=== PATIENT | female | born 1935 | race Caucasian/White ===

== ENCOUNTER 2020-12-30 09:59 | Outpatient (REF) | payer MEDICARE, SELFPAY ==
--- NOTE | ~2020-12-30 | MM_ITS ---
EXAMINATION: MM SCREENING DIGITAL BREAST TOMOSYNTHESIS, BILATERAL CLINICAL INFORMATION: Screening. Asymptomatic. COMPARISON: Mammography: 10/07/2019, 08/19/2018, 07/30/2017 TECHNIQUE: Digital breast tomosynthesis is performed in both the craniocaudal and mediolateral oblique views along with computer-aided detection (CAD). Synthesized 2D images are generated from the tomosynthesis. FINDINGS: There are scattered areas of fibroglandular density (ACR BI-RADS breast composition Category b). Parenchymal pattern is similar to prior studies. No developing density. Again, there is stable nodularity likely intraparenchymal nodes at mid outer left breast and also at mid outer right breast. There is a nodule with benign coarse calcification mid upper outer right breast consistent with degenerating fibroadenoma. There are no abnormal calcifications. The axilla and skin contours are unremarkable. No significant changes. MM/MM tomosynthesis screening BI IMPRESSION: No mammographic evidence of malignancy. ASSESSMENT: BI-RADS 2: Benign RECOMMENDATION: Routine annual mammography screening. This patient's information was entered into a reminder system with a target due date for their next mammogram.
== END 2020-12-30 10:00 | disposition home or self-care (01) ==
LOC: HO.MAMMO 09:59
PROVIDERS: PCP Internal Medicine; Visit Provider Internal Medicine
DX: Z12.31 Encounter for screening mammogram for malignant neoplasm of breast (principal)
CPT/HCPCS: 77063; 77067

== ENCOUNTER 2021-02-03 11:07 | Outpatient (REF) | payer MEDICARE, SELFPAY ==
[2021-02-03 12:06] LABS: Glucose Urine UA NEG (NEG); Leukocyte Esterase Urine 1+ (NEG); Nitrite Urine NEG (NEG); PH 6.5 (5.0-8.0); UACC Culture Trigger YES; Urine Blood NEG (NEG); Urine Ketones NEG (NEG); Urine Protein NEG (NEG-TRACE)
[2021-02-03 12:07] LABS: Appearance Urine HAZY; Color Urine YELLOW
[2021-02-03 12:34] LABS: Bacteria Urine 4+ /LPF; RBC Urine 0 /HPF (0); Squamous Epithelial Cell Urine 1+ /LPF; WBC Urine 30-49 /HPF (0-4)
== END 2021-02-03 11:08 | disposition home or self-care (01) ==
LOC: HO.LAB 11:07
PROVIDERS: PCP Internal Medicine; Visit Provider Internal Medicine
DX: R30.0 Dysuria (principal)
CPT/HCPCS: 81001; 81003; 87086; 87088; 87186

== ENCOUNTER 2021-06-05 10:37 | Outpatient (REF) | payer MEDICARE, SELFPAY ==
--- NOTE | 2021-06-05 14:17 | MHC.AU.AEV ---
Adult Audiological Evaluation Date of Visit: 06/05/21 Reason for Appointment: Patient's PCP recommended an audiological evaluation. Patient does not perceive that she has hearing difficulty in most situations. Many of her interactions are one-on-one or in small groups, and she feels she can understand people well. 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 When friends have called her on the phone, they have told her that she needs to lower her television in the background so they can hear her. Ear History: Ear Deformity: None Reported Recent Ear Drainage: None Reported Recent Ear Pain: None Reported Recent Ear Infections: None Reported Ear Infections in Childhood: None Reported History of Ear Wax Buildup: None Reported Previous Ear Surgery: None Reported Bothersome Tinnitus/Ringing/Noises in Ears: None Reported Ear used on the phone: Right Ear Blocked/Full Sensation in Ear(s): None Reported History of occupational noise exposure?: No History: No Medical History: Medical History: Hypertension. 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 They were discovered afterwards by imaging ordered by neurology. Otoscopy: Right Ear: Unremarkable Left Ear: Unremarkable Tympanometry: Tympanometry performed due to: To assess integrity of the middle ear system Right Ear: Reduced Middle Ear Compliance (Type As) Left Ear: Reduced Middle Ear Compliance (Type As) Hearing Evaluation: Transducer(s) Used: Circumaural Headphones Method: Conventional Audiometry Stimuli Used: Pure Tones Right Ear: Description of Hearing: Mild to severe/profound sensorineural hearing loss Left Ear: Description of Hearing: Mild to severe/profound sensorineural hearing loss Speech Recognition Threshold (SRT): Method Used: Recorded Lists Stimuli Used: Spondee Words Right Ear: 40 dBHL Left Ear: 45 dBHL Word Discrimination: Method: Recorded Lists Word Lists Used:: W-22 Right Ear: 52% at 75 dBHL Left Ear: 56% at 75 dBHL Most Comfortable Level (MCL): Right Ear: 75 dBHL Left Ear: 75 dBHL Interpretation of Results: Patient presents with mild sloping to severe/profound sensorineural hearing loss bilaterally, as well as poor word discrimination bilaterally. Audiologically, patient is a candidate for hearing aids. Patients with this degree of hearing loss often experience problems with clarity of sound. During conversation, many often find themselves saying things such as I heard you, but I didn't make out what you said. It is more difficult to understand speech in the presence of background noise or if the person speaking is not directly in front of the listener. Although audiologically she is a candidate for hearing aids, the patient does not seem ready for hearing aids at this time. She does not perceive that she is having hearing difficulty and feels she is able to follow along well in most conversations. She finds that most of her interactions are one-on-one or in smaller groups, and in quiet settings. She lives alone, and reports that she sets the television volume to however she wants it. In order for hearing aids to work optimally, one must be ready to wear them during all waking hours. Patient does not feel her hearing loss is impacting her daily life enough to make that commitment yet. Some signs that you may be ready for hearing aids include: -You find yourself asking huh? or what? numerous times a day. -People in your life are frequently bringing up concerns about your hearing. -You are avoiding certain activities, gatherings, or events because you don't think you'll be able to hear. -You are missing important safety cues, such as hearing people call your name, traffic sounds, knocks on the door/the doorbell, or alarms. -You find yourself, or others, getting frustrated during conversations. Recommendations: Audiological re-evaluation in one year. Diagnosis: Primary Diagnosis: H90.3 Bilateral Sensorineural Hearing Loss Signature: Provider: Poly García, JOCELINE-A
== END 2021-06-05 10:38 | disposition home or self-care (01) ==
LOC: HO.SH 10:37
PROVIDERS: Visit Provider Internal Medicine
DX: H90.3 Sensorineural hearing loss, bilateral (principal); I10 Essential (primary) hypertension; Z86.73 Personal history of transient ischemic attack (TIA), and cerebral infarction without residual deficits
CPT/HCPCS: 92557; 92567

== ENCOUNTER 2021-08-10 06:12 | Emergency (ER) | payer MEDICARE, SELFPAY ==
--- NOTE | ~2021-08-10 | MR_ITS ---
EXAMINATION: MR BRAIN WITHOUT CONTRAST CLINICAL INFORMATION: Vertigo. History of stroke. COMPARISON: CT head from 08/10/2021. Brain MRI from 11/13/2016. TECHNIQUE: MRI of the brain was obtained using routine sequences without contrast. FINDINGS: No focal restricted diffusion is demonstrated to suggest acute or subacute cerebral ischemia. No evidence of acute or chronic hemorrhagic products on heme-sensitive imaging. Regions of chronic encephalomalacia within the left occipitotemporal lobes and lateral right frontal lobe. Confluent periventricular, deep white matter, and brainstem T2 FLAIR hyperintensity consistent with underlying microangiopathy. Proportional prominence of the ventricles and sulcal spaces without evidence of obstructive hydrocephalus. No abnormal mass effect. No midline shift. Normal appearance of the pituitary gland. Normal positioning of the cerebellar tonsils. Normal arterial and venous vascular flow voids are present. Normal, homogeneous marrow signal. 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 There appears to be at least mild spinal canal stenosis at C4-C5. Mild mucosal thickening of the paranasal sinuses. No signal abnormalities within the mastoids. Bilateral lens extractions. MR/MR head/brain wo con IMPRESSION: 1. No acute intracranial abnormalities. 2. Chronic regions of encephalomalacia within the left occipitotemporal lobes and right frontal lobe. Extensive underlying microangiopathy. Moderate generalized cerebral volume loss.
--- NOTE | ~2021-08-10 | CT_ITS ---
EXAMINATION: CT HEAD WITHOUT CONTRAST CLINICAL INFORMATION: Dizziness COMPARISON: 09/29/2017 TECHNIQUE: Contiguous axial imaging was performed from the skull base to vertex without intravenous administration of contrast. This CT examination was performed using dose optimization techniques as appropriate, variously including the following: *Automated exposure control *Adjustment of mA and/or kV according to patient size (this includes techniques or standardized protocols for targeted exams where dose is matched to indication/reason for exam; i.e. extremities or head) *Use of iterative reconstruction technique DLP: 671 mGy-cm FINDINGS: No evidence of acute intracranial hemorrhage or extra-axial fluid collection. No acute territorial infarction. Old infarcts with encephalomalacia involve the left parietal lobe and right frontal lobe. Extensive periventricular white matter hypodensities are also seen indicating chronic small vessel ischemic disease. No evidence of mass lesion, mass effect or midline shift. The ventricles are symmetric in configuration and basal cisterns are patent. The ventricles are globally increased in size in proportion to sulcal depth in keeping with global volume loss, unchanged. The calvarium is intact. Limited views of the paranasal sinuses are unremarkable. Mastoid air cells are well aerated and middle ear cavities are clear. Bilateral lens extractions. CT/CT head/brain wo con IMPRESSION: 1. No evidence of acute intracranial abnormality. 2. Encephalomalacia involving the right frontal and left parietal lobes consistent with old infarct, unchanged.
--- NOTE | ~2021-08-10 | XR_ITS ---
EXAMINATION: XR CHEST CLINICAL INFORMATION: Dizziness. COMPARISON: None TECHNIQUE: Frontal view of the chest was obtained. FINDINGS: The lungs are hypoexpanded and clear of acute process. The heart size and pulmonary vascularity is normal. There is mild dextroscoliosis of mid dorsal spine. There is mild spondylosis of dorsal spine. XR/XR chest 1V IMPRESSION: Hypoexpanded lungs. No acute process seen.
[2021-08-10 06:19] VITALS: BP 206/108; BP 220/90; PULSE 57; PULSE 60; RESP 14; O2SAT 100; O2SAT 98; BMI 29.2
--- NOTE | 2021-08-10 07:07 | ECG_ITS ---
Test Reason : DIZZINESS Blood Pressure : / mmHG Vent. Rate : 063 BPM Atrial Rate : 063 BPM P-R Int : 194 ms QRS Dur : 096 ms QT Int : 424 ms P-R-T Axes : 005 004 -01 degrees QTc Int : 433 ms Sinus rhythm with Premature supraventricular complexes Nonspecific ST and T wave abnormality Abnormal ECG When compared with ECG of 09-JUN-2018 03:11, Premature supraventricular complexes are now Present Inverted T waves have replaced nonspecific T wave abnormality in Inferior leads Nonspecific T wave abnormality, worse in Lateral leads Referred By: Katya Felix Electronically Signed By:ROSALBA SIMMONS
--- NOTE | 2021-08-10 07:08 | ED_ITS ---
HPI - Dizziness General Chief Complaint: Dizziness Stated Complaint: DIZZINESS HX STROKE Time Seen by Provider: 08/10/21 06:25 Source: patient and EMS Mode of arrival: EMS Limitations: no limitations History of Present Illness HPI Narrative: 86-year-old female came in for evaluation of dizziness. 86-year-old female came in for evaluation of vertigo/dizziness (room is spinning) patient had a history of vertigo, started today (patient had a history of vertigo for 2 years), patient otherwise decline headache, no weakness, no numbness, dizziness is intermittent, symptoms usually triggered when she changed her position, but sometimes get it when she is resting in bed. Patient tried 3 of meclizine at home with no relief, however patient's symptoms improved in the ED. New patient declined any nausea or vomiting, no chest pain, no shortness of breath. Related Data Home Medications Medication Instructions Recorded Confirmed aspirin 81 mg tablet,delayed 81 mg PO DAILY 02/14/21 02/14/21 release (Adult Aspirin Regimen) Previous Rx's Medication Instructions Recorded ciprofloxacin HCl 250 mg tablet 250 mg PO BID 5 Days #10 tab 02/12/21 (Cipro) ciprofloxacin HCl 250 mg tablet 250 mg PO BID 3 Days #6 tab 03/22/21 meclizine 25 mg tablet 25 mg PO TID PRN #90 tab 03/22/21 atenolol 25 mg tablet 25 mg PO DAILY 90 Days #90 tab 05/04/21 omeprazole 20 mg capsule,delayed 20 mg PO DAILY 90 Days #90 cap 05/04/21 release Allergies Allergy/AdvReac Type Severity Reaction Status Date / Time codeine [CODEINE] Allergy Intermediate sleepiness Verified 02/14/21 09:40 penicillin V Allergy Intermediate Rash Verified 02/14/21 09:40 Sulfa (Sulfonamide Allergy Intermediate Rash Verified 02/14/21 09:40 Antibiotics) colchicine AdvReac Intermediate diarrhea Verified 02/14/21 09:40 Clindamycin HCl Allergy Intermediate dizziness Uncoded 02/14/21 09:40 Review of Systems Review of Systems: All other systems are reviewed and are negative Constitutional: Reports as per HPI and Reports no additional constitutional complaints Eyes: Reports as per HPI and Reports no additional eye complaints Reports system reviewed and no additional complaints, except as documented Cardiovascular: Reports as per HPI and Reports no additional cardiovascular complaints Respiratory: Reports as per HPI and Reports no additional respiratory complaints Gastrointestinal: Reports as per HPI and Reports no additional gastrointestinal complaints Genitourinary: Reports no additional female genitourinary complaints Musculoskeletal: Reports no additional musculoskeletal complaints Skin/Breast: Reports system reviewed and no additional complaints, except as docu Psychiatric: Reports no additional psychiatric complaints Endocrine: Reports no additional endocrine complaints Hematologic/Lymphatic: Reports no additional hematologic/lymphatic complaints Allergic/Immunologic: Reports no additional allergic/immunologic complaints Reports system reviewed and no additional complaints, except as documented and Reports Abnormal speech present [facility] Past Medical History Medical History Encounter for annual wellness exam in Medicare patient Essential hypertension GERD (gastroesophageal reflux disease) Gout Presbyacusis Surgical History History of appendectomy History of tonsillectomy Family History Family History Father No problems noted. Mother No problems noted. Social History Social History Alcohol intake: never Patient Tobacco Use Status: Never used Tobacco e-Cigarette/Vaping Use: Never Used Second Hand Smoke Exposure: No Use of substances other than those prescribed or required for medical reasons: No Advance Directives: Yes Advance Directives Information Provided: No Advance Directives on File: No Physical Exam Vital Signs: Vital Signs: Last Vital Signs Temp 98.8 F 08/10/21 10:55 Pulse 58 08/10/21 10:55 Resp 18 08/10/21 10:55 BP 178/64 H 08/10/21 10:55 Pulse Ox 98 08/10/21 10:55 BMI result Body Mass Index 29.2 Vital signs have been reviewed as appeared to be correct. Blood pressure eleva esteban. Heart rate normal. Respiration rate normal. Temperature normal. Oxygen saturation normal. Appearance: Alert. Oriented X3. No acute distress. Head: Normal external exam. Normocephalic. Atraumatic. No Daley signs noted. No raccoon eyes noted Eyes: PERRLA. EOMI. Conjunctiva and sclera normal. Eyelids normal. ENT: TM's Normal. Pharynx normal. Uvula midline. Moist mucous membranes. No trismus noted. No drooling noted. No muffled voice noted. Neck: Normal inspection. Neck supple. FROM. No adenopathy. Thyroid Normal. No meningeal signs. No neck mass noted. CVS: Normal heart rate and rhythm. Heart sound normal. No murmurs noted. Pulses normal throughout. Respiratory: No respiratory distress. Painless inspiration. Breath sounds normal. No wheezes/rales/rhonchi noted. Chest nontender. No accessory muscle usage noted or decreased air movement noted. Abdomen: Soft and nontender. Bowel sounds normal in all 4 quadrants. No distention noted. No organomegaly noted. No visible injury noted. Back: No CVA tenderness. Full range of motion noted. Skin: Skin warm and dry. Normal skin color. Normal skin turgor. No rashes/lesions/lacerations noted. Extremities: No lower extremity edema. Extremities exhibit normal range of motion. Extremities nontender. Neuro: Oriented X 3. Cranial nerve exam: II-XII are grossly intact No motor deficit. No sensory deficit. Reflexes normal. NIH Stroke Scale Level of Consciousness: Alert Level of Consciousness Questions: Answers both questions correctly Level of Consciousness Commands: Performs both tasks correctly Best Gaze: Normal Visual: No visual loss Facial Palsy: Normal Motor Arm (Right): No drift Motor Arm (Left): No drift Motor Leg (Right): No drift Motor Leg (Left): No drift Limb Ataxia: Absent Sensory: Normal Best Language: No aphasia Dysarthia: Normal Extinction and Inattention: No abnormality Score: 0 Course Course Course Narrative: Assessment and plan. 86-year-old female with chronic history of vertigo and also history of stroke came in for vertigo. Concern of posterior fossa stroke patient had a negative CT/negative MRI of the brain for acute strokes, patient's neuro exam is normal, NIH score is 0. Patient was instructed to be slow and careful when he changed position and if she feel dizzy should not get up and walk. [facility] - Dizziness Medical Records Attestation: I reviewed the patient's medical records. Lab Data Attestation: I reviewed the patient's lab results. Result diagrams: 08/10/21 07:56 08/10/21 07:56 Labs: Lab Results 08/10/21 08/10/21 08/10/21 Range/Units 07:56 07:56 07:56 WBC 10.8 (4.8-10.8) X10*3/uL RBC 4.14 L (4.20-5.50) X10*6/uL Hgb 13.1 (12.0-16.0) g/dl Hct 39.2 (37.0-47.0) % MCV 94.7 (80.0-98.0) fL MCH 31.6 (27.0-33.0) pg MCHC 33.4 (31.0-35.0) g/dl RDW 13.2 (11.0-16.0) % Plt Count 161 (160-400) X10*3/uL MPV 10.3 (9.4-12.3) fL Immature Gran % (Auto) 0.2 (0.0-0.4) % Neut % (Auto) 25.4 L (45-73) % Lymph % (Auto) 63.4 H (20-40) % [place] % (Auto) 7.2 (2-11) % Eos % (Auto) 3.4 (0-4) % Baso % (Auto) 0.4 (0-2) % Lymph # (Auto) 6.9 H (1.2-4.9) X10*3/uL [place] # (Auto) 0.8 (0.1-1.2) X10*3/uL Eos # (Auto) 0.4 (0.0-0.4) X10*3/uL Baso # (Auto) 0.0 (0.0-0.2) X10*3/uL Abs Immat Gran (auto) 0.02 (0.00-0.03) X10*3/uL Absolute Neuts (auto) 2.8 (2.0-8.3) x10*3/uL Absolute Nucleated RBC 0.000 (0.0-0.012) X10*3/uL Nucleated RBC % (auto) 0.0 (0.0-0.2) /100WBC Smear Tech's Comments VERIFIED Sodium 142 (135-145) mmol/L Potassium 3.9 (3.3-5.1) mmol/L Chloride 108 (96-108) mmol/L Carbon Dioxide 24 (22-29) mmol/L Anion Gap 14 (12-20) BUN 25 H (9-16) mg/dL Creatinine 1.00 (0.5-1.4) mg/dL Estim Creat Clear Calc 40.5 Estimated GFR 53 Random Glucose 101 (60-115) mg/dL Calcium 9.8 (8.4-10.2) mg/dL Total Bilirubin 0.9 (0.0-1.0) mg/dL Direct Bilirubin 0.3 (0.0-0.5) mg/dL AST 18 (5-31) U/L ALT 14 (0-31) U/L Alkaline Phosphatase 73 (39-117) U/L Troponin I High Sens 9.6 (<3.5-17.0) ng/L Total Protein 6.6 (6.5-8.0) g/dL Albumin 3.9 (3.5-5.0) g/dL Lipase 18 (8-78) U/L Urine Color Urine Appearance Urine pH (5.0-8.0) Ur Specific [place] (1.005-1.025) Urine Protein (NEG-TRACE) MG/DL Urine Glucose (UA) (NEG) MG/DL Urine Ketones (NEG) MG/DL Urine Blood (NEG) Urine Nitrite (NEG) Ur Leukocyte Esterase (NEG) 08/10/21 Range/Units 09:04 WBC (4.8-10.8) X10*3/uL RBC (4.20-5.50) X10*6/uL Hgb (12.0-16.0) g/dl Hct (37.0-47.0) % MCV (80.0-98.0) fL MCH (27.0-33.0) pg MCHC (31.0-35.0) g/dl RDW (11.0-16.0) % Plt Count (160-400) X10*3/uL MPV (9.4-12.3) fL Immature Gran % (Auto) (0.0-0.4) % Neut % (Auto) (45-73) % Lymph % (Auto) (20-40) % [place] % (Auto) (2-11) % Eos % (Auto) (0-4) % Baso % (Auto) (0-2) % Lymph # (Auto) (1.2-4.9) X10*3/uL [place] # (Auto) (0.1-1.2) X10*3/uL Eos # (Auto) (0.0-0.4) X10*3/uL Baso # (Auto) (0.0-0.2) X10*3/uL Abs Immat Gran (auto) (0.00-0.03) X10*3/uL Absolute Neuts (auto) (2.0-8.3) x10*3/uL Absolute Nucleated RBC (0.0-0.012) X10*3/uL Nucleated RBC % (auto) (0.0-0.2) /100WBC Smear Tech's Comments Sodium (135-145) mmol/L Potassium (3.3-5.1) mmol/L Chloride (96-108) mmol/L Carbon Dioxide (22-29) mmol/L Anion Gap (12-20) BUN (9-16) mg/dL Creatinine (0.5-1.4) mg/dL Estim Creat Clear Calc Estimated GFR Random Glucose (60-115) mg/dL Calcium (8.4-10.2) mg/dL Total Bilirubin (0.0-1.0) mg/dL Direct Bilirubin (0.0-0.5) mg/dL AST (5-31) U/L ALT (0-31) U/L Alkaline Phosphatase (39-117) U/L Troponin I High Sens (<3.5-17.0) ng/L Total Protein (6.5-8.0) g/dL Albumin (3.5-5.0) g/dL Lipase (8-78) U/L Urine Color STRAW Urine Appearance CLEAR Urine pH 7.5 (5.0-8.0) Ur Specific [place] 1.010 (1.005-1.025) Urine Protein NEG (NEG-TRACE) MG/DL Urine Glucose (UA) NEG (NEG) MG/DL Urine Ketones NEG (NEG) MG/DL Urine Blood NEG (NEG) Urine Nitrite NEG (NEG) Ur Leukocyte Esterase NEG (NEG) Imaging Data CT scan - head: Radiologist's impression: 1. No evidence of acute intracranial abnormality. 2. Encephalomalacia involving the right frontal and left parietal lobes consistent with old infarct, unchanged. MRI - head: Radiologist's impression: 1. No acute intracranial abnormalities. 2. Chronic regions of encephalomalacia within the left occipitotemporal lobes and right frontal lobe. Extensive underlying microangiopathy. Moderate generalized cerebral volume loss. Chest x-ray: Radiologist's impression: Hypoexpanded lungs. No acute process seen. ECG Data Attestation: I personally reviewed and interpreted this ECG as follows: Interpretation: Normal sinus rhythm at 63 beats per minutes, occasional premature supraventricular complex, no ST-T changes. Discharge Plan Discharge Clinical Impression: Essential hypertension, Vertigo Patient Disposition: Home, Self-Care Instructions: Vertigo (ED) Prescriptions: No Action ciprofloxacin HCl [Cipro] 250 mg tablet 250 mg PO BID 5 Days Qty: 10 RF: 0 meclizine 25 mg tablet 25 mg PO TID PRN (Reason: dizziness) Qty: 90 RF: 6 ciprofloxacin HCl 250 mg tablet 250 mg PO BID 3 Days Qty: 6 RF: 0 atenolol 25 mg tablet 25 mg PO DAILY 90 Days Qty: 90 RF: 3 omeprazole 20 mg capsule,delayed release(DR/EC) 20 mg PO DAILY 90 Days Qty: 90 RF: 3 aspirin [Adult Aspirin Regimen] 81 mg tablet,delayed release (DR/EC) 81 mg PO DAILY RF: 0 Referrals: Elodia Heard MD [Primary Care Provider] - 2 days
[2021-08-10 08:06] LABS: Basophils Percent Auto 0.4 % (0-2); Eosinophils Absolute Auto 0.4 X10*3/uL (0.0-0.4); Eosinophils Percent Auto 3.4 % (0-4); Hematocrit 39.2 % (37.0-47.0); Hemoglobin 13.1 g/dl (12.0-16.0); Imm Gran Abs Auto 0.02 X10*3/uL (0.00-0.03); Imm Gran Pct Auto 0.2 % (0.0-0.4); Lymphocytes Percent Auto 63.4 % (20-40); MANUAL DIFF FLAG SCAN; Mean Corpuscular HGB Conc 33.4 g/dl (31.0-35.0); Mean Corpuscular Hemoglobin 31.6 pg (27.0-33.0); Mean Corpuscular Volume 94.7 fL (80.0-98.0); Mean Platelet Volume 10.3 fL (9.4-12.3); Monocytes Absolute Auto 0.8 X10*3/uL (0.1-1.2); Monocytes Percent Auto 7.2 % (2-11); Neutrophils Absolute Auto 2.8 x10*3/uL (2.0-8.3); Neutrophils Percent Auto 25.4 % (45-73); Platelet Count 161 X10*3/uL (160-400); Red Blood Count 4.14 X10*6/uL (4.20-5.50); Red Cell Distribution Width 13.2 % (11.0-16.0); SCAN SMEAR FLAG 1; White Blood Count 10.8 X10*3/uL (4.8-10.8)
[2021-08-10 08:07] LABS: Lymphocytes Absolute Auto 6.9 X10*3/uL (1.2-4.9)
[2021-08-10 08:24] LABS: Alanine Aminotransferase 14 U/L (0-31); Albumin Level 3.9 g/dL (3.5-5.0); Alkaline Phosphatase 73 U/L (39-117); Anion Gap 14 (12-20); Aspartate Amino Transferase 18 U/L (5-31); Bilirubin Direct 0.3 mg/dL (0.0-0.5); Bilirubin Total 0.9 mg/dL (0.0-1.0); Blood Urea Nitrogen 25 mg/dL (9-16); Calcium 9.8 mg/dL (8.4-10.2); Carbon Dioxide 24 mmol/L (22-29); Chloride 108 mmol/L (96-108); Creatinine Clr Calc Pharmacy 40.5; Estimated Glomerular Filt Rate 53; Glucose Random 101 mg/dL (60-115); Lipase 18 U/L (8-78); Potassium 3.9 mmol/L (3.3-5.1); Sodium 142 mmol/L (135-145); Total Protein 6.6 g/dL (6.5-8.0)
[2021-08-10 08:25] LABS: SLIDE REVIEW VERIFIED
[2021-08-10 08:30] LABS: Troponin-I High Sensitivity 9.6 ng/L (<3.5-17.0)
[2021-08-10 09:06] VITALS: BP 197/69; PULSE 60; RESP 20; TEMP 37.1; O2SAT 97
--- NOTE | 2021-08-10 09:11 | PC.NURSE ---
PT LAB WORK PENDING HAS BEEN TO MRI RESULTS PENDING DAUGHTER HAS BEEN UPDATED ON STATUS WILL CALL ONCE WE HAVE MORE RESULTS
[2021-08-10 09:19] LABS: Appearance Urine CLEAR; Color Urine STRAW; Glucose Urine UA NEG (NEG); Leukocyte Esterase Urine NEG (NEG); Nitrite Urine NEG (NEG); PH 7.5 (5.0-8.0); Urine Blood NEG (NEG); Urine Ketones NEG (NEG); Urine Protein NEG (NEG-TRACE)
[2021-08-10 10:55] VITALS: BP 178/64; PULSE 58; RESP 18; TEMP 37.1; O2SAT 98
--- NOTE | 2021-08-10 11:37 | PC.NURSE ---
daughter call will be coming to pu her mom
== END 2021-08-10 12:10 | disposition home or self-care (01) ==
PROVIDERS: Emergency Provider Emergency Medicine; PCP Internal Medicine
DX: R42 Dizziness and giddiness (principal); I10 Essential (primary) hypertension
CPT/HCPCS: 36415; 70450; 70551; 71045; 80048; 80076; 81003; 83690; 84484; 85025; 93005; 99285

== ENCOUNTER → 2021-12-07 10:12 | Outpatient (BNVA) | payer MEDICARE, SELFPAY | PROVIDERS: PCP Internal Medicine; Referring Provider Internal Medicine; Visit Provider Nurse Practitioner | DX: K31.7 Polyp of stomach and duodenum (principal); K21.9 Gastro-esophageal reflux disease without esophagitis; R10.13 Epigastric pain | CPT/HCPCS: 99202 ==

== ENCOUNTER 2022-02-20 10:02 | Outpatient (REF) | payer MEDICARE, SELFPAY ==
[2022-02-20 12:15] LABS: Appearance Urine HAZY; Color Urine YELLOW; Glucose Urine UA NEG (NEG); Leukocyte Esterase Urine 1+ (NEG); Nitrite Urine NEG (NEG); PH 6.5 (5.0-8.0); Specific Gravity - Urine 1.015 (1.005-1.025); UACC Culture Trigger YES; Urine Blood TRACE (NEG); Urine Ketones NEG (NEG); Urine Protein TRACE MG/DL (NEG-TRACE)
[2022-02-20 12:36] LABS: Squamous Epithelial Cell Urine 1+ /LPF
[2022-02-20 12:37] LABS: Bacteria Urine 1+ /LPF
== END 2022-02-20 10:03 | disposition home or self-care (01) ==
LOC: HO.LAB 10:02
PROVIDERS: PCP Internal Medicine; Visit Provider Internal Medicine
DX: R30.0 Dysuria (principal)
CPT/HCPCS: 81001; 81003; 87086; 87088; 87186

== ENCOUNTER 2022-02-21 17:34 | Emergency (ER) | payer MEDICARE, SELFPAY ==
--- NOTE | ~2022-02-21 | XR_ITS ---
EXAMINATION: XR ANKLE, RIGHT CLINICAL INFORMATION: Fall COMPARISON: None TECHNIQUE: AP, lateral, and mortise views of the right ankle. FINDINGS: There is marked bilateral soft tissue swelling. The ankle mortise appears stable. An ankle effusion is not seen. No fracture is detected. Vascular calcifications are present in incidental note is made of a plantar calcaneal spur. XR/XR ankle RT 2V IMPRESSION: No evidence of an acute osseous injury.
[2022-02-21 17:46] VITALS: BP 175/65; PULSE 58; RESP 16; TEMP 36.9; O2SAT 98
[2022-02-21 17:50] VITALS: BP 132/86; PULSE 66; O2SAT 96; BMI 30.7
--- NOTE | 2022-02-21 18:11 | ED_ITS ---
HPI - Fall General Chief Complaint: Fall Stated Complaint: fall/ r ankle pain/ dizziness Time Seen by Provider: 02/21/22 18:09 Source: patient Mode of arrival: EMS Limitations: no limitations History of Present Illness HPI Narrative: Patient history of vertigo uses walker or cane today she was walking in the kitchen without any cane or walker had a mechanical fall she does not know what happened exactly no dizziness no chest pain no loss of consciousness complaining of pain in the right ankle Related Data Home Medications Medication Instructions Recorded Confirmed aspirin 81 mg tablet,delayed 81 mg PO DAILY 02/14/21 02/15/22 release (Adult Aspirin Regimen) ascorbic acid (vitamin C) 500 mg 500 mg PO DAILY 12/07/21 02/15/22 capsule cholecalciferol (vitamin D3) 50 50 mcg PO DAILY 12/07/21 02/15/22 mcg (2,000 unit) capsule Previous Rx's Medication Instructions Recorded meclizine 25 mg tablet 25 mg PO TID PRN dizziness #90 tabs 03/22/21 atenolol 25 mg tablet 25 mg PO DAILY 90 days #90 tabs 05/04/21 famotidine 40 mg tablet (Pepcid) 40 mg PO BEDTIME #30 tabs 12/07/21 nitrofurantoin macrocrystal 100 mg 100 mg PO BID 7 days #14 caps 02/15/22 capsule Allergies Allergy/AdvReac Type Severity Reaction Status Date / Time clindamycin Allergy Intermediate Dizziness Verified 02/15/22 15:00 codeine [CODEINE] Allergy Intermediate sleepiness Verified 02/15/22 11:02 penicillin V Allergy Intermediate Rash Verified 02/15/22 11:02 Sulfa (Sulfonamide Allergy Intermediate Rash Verified 02/15/22 11:02 Antibiotics) colchicine AdvReac Intermediate diarrhea Verified 02/15/22 11:02 Review of Systems Review of Systems: Yes all other systems are reviewed and are negative [facility] Past Medical History Medical History HTN (hypertension) Low back pain with sciatica Osteoarthritis TIA (transient ischemic attack) Surgical History History of appendectomy History of esophagogastroduodenoscopy (EGD) History of tonsillectomy Hx of cataract extraction S/P implantation of urinary electronic stimulator device Family History Family History Father No problems noted. Mother No problems noted. Social History Social History Alcohol intake: never Patient Tobacco Use Status: Never used Tobacco e-Cigarette/Vaping Use: Never Used Second Hand Smoke Exposure: No Advance Directives: No Advance Directives Information Provided: No Physical Exam Vital Signs: Vital Signs: Last Vital Signs Temp 98.5 F 02/21/22 20:08 Pulse 72 02/21/22 20:08 Resp 16 02/21/22 20:08 BP 179/63 H 02/21/22 20:08 Pulse Ox 95 02/21/22 20:08 O2 Del Method 02/21/22 20:08 BMI result Body Mass Index 30.7 Appearance: Alert. Oriented X3. No acute distress. Eyes: PERRLA, No Nystagmus ENT: Pharynx normal. Oral Mucosa moist Neck: Normal inspection. Neck supple. CVS: Normal heart rate and rhythm. Pulses normal. Respiratory: No respiratory distress. Equal air entry bilateral, no wheezing/rales/rhonchi Abdomen: Soft and nontender. Bowel sounds are present, no mass palpable, no CVA tenderness Skin: Skin warm and dry. Normal skin color. Normal skin turgor. Extremities: 1+ lower extremity edema. No calf tenderness R ankle tenderness without deformity Neuro: Oriented X 3. No motor deficit. No sensory deficit.No cerebellar signs , cranial nerves II-XII intact MDM - Fall Lab Data Result diagrams: 02/21/22 18:55 02/21/22 18:55 Labs: Lab Results 02/21/22 02/21/22 02/21/22 Range/Units 18:55 18:55 18:55 WBC 14.0 H (4.8-10.8) X10*3/uL RBC 4.21 (4.20-5.50) X10*6/uL Hgb 13.3 (12.0-16.0) g/dl Hct 39.3 (37.0-47.0) % MCV 93.3 (80.0-98.0) fL MCH 31.6 (27.0-33.0) pg MCHC 33.8 (31.0-35.0) g/dl RDW 13.3 (11.0-16.0) % Plt Count 171 (160-400) X10*3/uL MPV 10.2 (9.4-12.3) fL Immature Gran % (Auto) 0.2 (0.0-0.4) % Neut % (Auto) 43.6 L (45-73) % Lymph % (Auto) 47.9 H (20-40) % [place] % (Auto) 6.9 (2-11) % Eos % (Auto) 1.1 (0-4) % Baso % (Auto) 0.3 (0-2) % Lymph # (Auto) 6.7 H (1.2-4.9) X10*3/uL [place] # (Auto) 1.0 (0.1-1.2) X10*3/uL Eos # (Auto) 0.2 (0.0-0.4) X10*3/uL Baso # (Auto) 0.0 (0.0-0.2) X10*3/uL Abs Immat Gran (auto) 0.03 (0.00-0.03) X10*3/uL Absolute Neuts (auto) 6.1 (2.0-8.3) x10*3/uL Absolute Nucleated RBC 0.000 (0.0-0.012) X10*3/uL Nucleated RBC % (auto) 0.0 (0.0-0.2) /100WBC Smear Tech's Comments VERIFIED Sodium 141 (135-145) mmol/L Potassium 4.9 D (3.3-5.1) mmol/L Chloride 106 (96-108) mmol/L Carbon Dioxide 27 (22-29) mmol/L Anion Gap 13 (12-20) BUN 27 H (9-16) mg/dL Creatinine 1.40 (0.5-1.4) mg/dL Estim Creat Clear Calc 28.6 Estimated GFR 36 Random Glucose 117 H (60-115) mg/dL Calcium 9.6 (8.4-10.2) mg/dL Total Bilirubin 0.9 (0.0-1.0) mg/dL AST 22 (5-31) U/L ALT 15 (0-31) U/L Alkaline Phosphatase 77 (39-117) U/L Troponin I High Sens 9.9 (<3.5-17.0) ng/L Total Protein 6.8 (6.5-8.0) g/dL Albumin 4.1 (3.5-5.0) g/dL Urine Color Urine Appearance Urine pH (5.0-8.0) Ur Specific [place] (1.005-1.025) Urine Protein (NEG-TRACE) MG/DL Urine Glucose (UA) (NEG) MG/DL Urine Ketones (NEG) MG/DL Urine Blood (NEG) Urine Nitrite (NEG) Ur Leukocyte Esterase (NEG) Urine RBC (0) /HPF Urine WBC (0-4) /HPF Urine WBC Clumps Ur Squamous Epith Cells /LPF Urine Bacteria /LPF 02/21/22 Range/Units 20:42 WBC (4.8-10.8) X10*3/uL RBC (4.20-5.50) X10*6/uL Hgb (12.0-16.0) g/dl Hct (37.0-47.0) % MCV (80.0-98.0) fL MCH (27.0-33.0) pg MCHC (31.0-35.0) g/dl RDW (11.0-16.0) % Plt Count (160-400) X10*3/uL MPV (9.4-12.3) fL Immature Gran % (Auto) (0.0-0.4) % Neut % (Auto) (45-73) % Lymph % (Auto) (20-40) % [place] % (Auto) (2-11) % Eos % (Auto) (0-4) % Baso % (Auto) (0-2) % Lymph # (Auto) (1.2-4.9) X10*3/uL [place] # (Auto) (0.1-1.2) X10*3/uL Eos # (Auto) (0.0-0.4) X10*3/uL Baso # (Auto) (0.0-0.2) X10*3/uL Abs Immat Gran (auto) (0.00-0.03) X10*3/uL Absolute Neuts (auto) (2.0-8.3) x10*3/uL Absolute Nucleated RBC (0.0-0.012) X10*3/uL Nucleated RBC % (auto) (0.0-0.2) /100WBC Smear Tech's Comments Sodium (135-145) mmol/L Potassium (3.3-5.1) mmol/L Chloride (96-108) mmol/L Carbon Dioxide (22-29) mmol/L Anion Gap (12-20) BUN (9-16) mg/dL Creatinine (0.5-1.4) mg/dL Estim Creat Clear Calc Estimated GFR Random Glucose (60-115) mg/dL Calcium (8.4-10.2) mg/dL Total Bilirubin (0.0-1.0) mg/dL AST (5-31) U/L ALT (0-31) U/L Alkaline Phosphatase (39-117) U/L Troponin I High Sens (<3.5-17.0) ng/L Total Protein (6.5-8.0) g/dL Albumin (3.5-5.0) g/dL Urine Color YELLOW Urine Appearance HAZY Urine pH 6.5 (5.0-8.0) Ur Specific [place] 1.020 (1.005-1.025) Urine Protein 1+ H (NEG-TRACE) MG/DL Urine Glucose (UA) NEG (NEG) MG/DL Urine Ketones NEG (NEG) MG/DL Urine Blood NEG (NEG) Urine Nitrite NEG (NEG) Ur Leukocyte Esterase 1+ H (NEG) Urine RBC 0-2 (0) /HPF Urine WBC 15-29 H (0-4) /HPF Urine WBC Clumps NOTED Ur Squamous Epith Cells 3+ /LPF Urine Bacteria 1+ /LPF Discharge Plan Discharge Clinical Impression: Fall, UTI (urinary tract infection) Patient Disposition: Home, Self-Care Prescriptions: No Action meclizine 25 mg tablet 25 mg PO TID PRN (Reason: dizziness) Qty: 90 6RF atenolol 25 mg tablet 25 mg PO DAILY 90 Days Qty: 90 3RF aspirin [Adult Aspirin Regimen] 81 mg tablet,delayed release (DR/EC) 81 mg PO DAILY nitrofurantoin macrocrystal 100 mg capsule 100 mg PO BID 7 Days Qty: 14 0RF Rx Instructions: must administer with a meal/food ascorbic acid (vitamin C) 500 mg capsule 500 mg PO DAILY cholecalciferol (vitamin D3) 50 mcg (2,000 unit) capsule 50 mcg PO DAILY famotidine [Pepcid] 40 mg tablet 40 mg PO BEDTIME Qty: 30 6RF
--- NOTE | 2022-02-21 18:16 | ECG_ITS ---
Test Reason : SYNCOPE Blood Pressure : / mmHG Vent. Rate : 073 BPM Atrial Rate : 073 BPM P-R Int : 240 ms QRS Dur : 100 ms QT Int : 382 ms P-R-T Axes : 038 -03 181 degrees QTc Int : 420 ms Sinus rhythm with 1st degree A-V block Left ventricular hypertrophy with repolarization abnormality ( R in aVL , [place] product ) Cannot rule out Septal infarct , age undetermined Abnormal ECG When compared with ECG of 10-AUG-2021 07:57, Premature supraventricular complexes are no longer Present [place] interval has increased T wave inversion now evident in Anterolateral leads Referred By: Lorenzo Osorio Electronically Signed By:Karthikeyan Hood
[2022-02-21 19:05] LABS: Basophils Percent Auto 0.3 % (0-2); Eosinophils Absolute Auto 0.2 X10*3/uL (0.0-0.4); Eosinophils Percent Auto 1.1 % (0-4); Hematocrit 39.3 % (37.0-47.0); Hemoglobin 13.3 g/dl (12.0-16.0); Imm Gran Abs Auto 0.03 X10*3/uL (0.00-0.03); Imm Gran Pct Auto 0.2 % (0.0-0.4); Lymphocytes Percent Auto 47.9 % (20-40); MANUAL DIFF FLAG SCAN; Mean Corpuscular HGB Conc 33.8 g/dl (31.0-35.0); Mean Corpuscular Hemoglobin 31.6 pg (27.0-33.0); Mean Corpuscular Volume 93.3 fL (80.0-98.0); Mean Platelet Volume 10.2 fL (9.4-12.3); Monocytes Percent Auto 6.9 % (2-11); Neutrophils Absolute Auto 6.1 x10*3/uL (2.0-8.3); Neutrophils Percent Auto 43.6 % (45-73); Platelet Count 171 X10*3/uL (160-400); Red Blood Count 4.21 X10*6/uL (4.20-5.50); Red Cell Distribution Width 13.3 % (11.0-16.0); SCAN SMEAR FLAG 1
[2022-02-21 19:06] LABS: Lymphocytes Absolute Auto 6.7 X10*3/uL (1.2-4.9)
[2022-02-21 19:23] LABS: Alanine Aminotransferase 15 U/L (0-31); Albumin Level 4.1 g/dL (3.5-5.0); Alkaline Phosphatase 77 U/L (39-117); Anion Gap 13 (12-20); Aspartate Amino Transferase 22 U/L (5-31); Bilirubin Total 0.9 mg/dL (0.0-1.0); Blood Urea Nitrogen 27 mg/dL (9-16); Calcium 9.6 mg/dL (8.4-10.2); Carbon Dioxide 27 mmol/L (22-29); Chloride 106 mmol/L (96-108); Creatinine Clr Calc Pharmacy 28.6; Estimated Glomerular Filt Rate 36; Glucose Random 117 mg/dL (60-115); Potassium 4.9 mmol/L (3.3-5.1); Sodium 141 mmol/L (135-145); Total Protein 6.8 g/dL (6.5-8.0)
[2022-02-21 19:24] LABS: SLIDE REVIEW VERIFIED
[2022-02-21 19:29] LABS: Troponin-I High Sensitivity 9.9 ng/L (<3.5-17.0)
--- NOTE | 2022-02-21 19:36 | PC.NURSE ---
PATIENT WAS INC OF URINE ,CARE GIVEN AND BEDDING CHANGE ,PERWICK IN PLACE .
[2022-02-21 20:08] VITALS: BP 179/63; PULSE 72; RESP 16; TEMP 36.9; O2SAT 95
[2022-02-21 20:50] LABS: Appearance Urine HAZY; Color Urine YELLOW; Glucose Urine UA NEG (NEG); Leukocyte Esterase Urine 1+ (NEG); Nitrite Urine NEG (NEG); PH 6.5 (5.0-8.0); UACC Culture Trigger YES; Urine Blood NEG (NEG); Urine Ketones NEG (NEG); Urine Protein 1+ MG/DL (NEG-TRACE)
[2022-02-21 21:05] LABS: Bacteria Urine 1+ /LPF; RBC Urine 0-2 /HPF (0); Squamous Epithelial Cell Urine 3+ /LPF; WBC Clumps Urine NOTED
== END 2022-02-21 22:14 | disposition home or self-care (01) ==
PROVIDERS: Emergency Provider Internal Medicine; PCP Internal Medicine
DX: N39.0 Urinary tract infection, site not specified (principal); M25.571 Pain in right ankle and joints of right foot; I10 Essential (primary) hypertension; Z86.73 Personal history of transient ischemic attack (TIA), and cerebral infarction without residual deficits; Z91.81 History of falling
CPT/HCPCS: 36415; 73600; 80053; 81001; 84484; 85025; 93005; 99283; 99284

== ENCOUNTER 2022-05-03 09:17 | Outpatient (REF) | payer MEDICARE, SELFPAY ==
[2022-05-03 10:23] LABS: Appearance Urine Hazy; Color Urine Yellow; Glucose Urine UA Negative (Negative); Leukocyte Esterase Urine Large (3+) (Negative); Nitrite Urine Positive (Negative); Specific Gravity - Urine 1.015 (1.005-1.025); Urine Blood Trace (Negative); Urine Ketones Negative (Negative); Urine Protein 30 (1+) mg/dL (Neg-Trace)
[2022-05-03 10:40] LABS: Alanine Aminotransferase 11 U/L (0-31); Albumin Level 3.8 g/dL (3.5-5.0); Alkaline Phosphatase 72 U/L (39-117); Anion Gap 12 (12-20); Aspartate Amino Transferase 19 U/L (5-31); Bilirubin Total 0.8 mg/dL (0.0-1.0); Blood Urea Nitrogen 24 mg/dL (9-16); Calcium 9.5 mg/dL (8.4-10.2); Carbon Dioxide 26 mmol/L (22-29); Chloride 107 mmol/L (96-108); Cholesterol 187 mg/dL; Estimated Glomerular Filt Rate 43; Glucose Fasting 96 mg/dL (60-99); HDL Cholesterol 38 mg/dL; LDL Cholesterol Calculated 116 mg/dl; Potassium 4.1 mmol/L (3.3-5.1); Sodium 141 mmol/L (135-145); Total Protein 6.4 g/dL (6.5-8.0); Triglycerides 166 mg/dL; Uric Acid 7.9 mg/dL (2.4-5.7)
[2022-05-03 10:52] LABS: UACC Culture Trigger YES; WBC Urine >50 /HPF (0-5)
[2022-05-03 10:53] LABS: Bacteria Urine 4+ (None Seen); RBC Urine 0-2 /HPF (0-2); Squamous Epithelial Cell Urine 0-2 /HPF (0-2)
[2022-05-03 11:02] LABS: Vitamin D 25-OH Total 62.8 ng/mL (>30)
[2022-05-03 14:21] LABS: Hyaline Casts Urine 0-2 /LPF (0-2)
== END 2022-05-03 09:18 | disposition home or self-care (01) ==
LOC: HO.LAB 09:17
PROVIDERS: PCP Internal Medicine; Visit Provider Internal Medicine
DX: I10 Essential (primary) hypertension (principal); E55.9 Vitamin D deficiency, unspecified; M10.9 Gout, unspecified
CPT/HCPCS: 36415; 80053; 80061; 81001; 82306; 84550; 87086; 87088; 87186

== ENCOUNTER 2022-05-07 07:42 | Outpatient (REF) | payer MEDICARE, SELFPAY ==
--- NOTE | ~2022-05-07 | XR_ITS ---
EXAMINATION: 1. RADIOGRAPH RIGHT KNEE 2. RADIOGRAPHS LEFT KNEE CLINICAL INFORMATION: Bilateral knee pain COMPARISON: Bilateral knee x-rays 04/07/2019 TECHNIQUE: Standing frontal radiographs of both knees were obtained. Lateral and patellar sunrise views of both knees were also obtained. FINDINGS: Right knee: No fracture or dislocation. No joint effusion. Medial and lateral joint spaces demonstrate only mild narrowing although there is severe degenerative changes of the patellofemoral joint, stable. Mild chondrocalcinosis. Vascular calcifications noted. Left knee: No fracture or dislocation. Tiny suprapatellar joint effusion. Mild narrowing of the medial joint space height. There is moderate to severe in degenerative changes of the patellofemoral joint. Small tricompartmental marginal osteophytes. Chondrocalcinosis noted. Vascular calcifications appreciated. XR/XR knee RT 2V IMPRESSION: Moderate degenerative changes of both knees, primarily affecting the patellofemoral joints and more prominent on the right.
--- NOTE | ~2022-05-07 | XR_ITS ---
EXAMINATION: 1. RADIOGRAPH RIGHT KNEE 2. RADIOGRAPHS LEFT KNEE CLINICAL INFORMATION: Bilateral knee pain COMPARISON: Bilateral knee x-rays 04/07/2019 TECHNIQUE: Standing frontal radiographs of both knees were obtained. Lateral and patellar sunrise views of both knees were also obtained. FINDINGS: Right knee: No fracture or dislocation. No joint effusion. Medial and lateral joint spaces demonstrate only mild narrowing although there is severe degenerative changes of the patellofemoral joint, stable. Mild chondrocalcinosis. Vascular calcifications noted. Left knee: No fracture or dislocation. Tiny suprapatellar joint effusion. Mild narrowing of the medial joint space height. There is moderate to severe in degenerative changes of the patellofemoral joint. Small tricompartmental marginal osteophytes. Chondrocalcinosis noted. Vascular calcifications appreciated. XR/XR knee LT 2V IMPRESSION: Moderate degenerative changes of both knees, primarily affecting the patellofemoral joints and more prominent on the right.
--- NOTE | ~2022-05-07 | XR_ITS ---
EXAMINATION: 1. RADIOGRAPH RIGHT KNEE 2. RADIOGRAPHS LEFT KNEE CLINICAL INFORMATION: Bilateral knee pain COMPARISON: Bilateral knee x-rays 04/07/2019 TECHNIQUE: Standing frontal radiographs of both knees were obtained. Lateral and patellar sunrise views of both knees were also obtained. FINDINGS: Right knee: No fracture or dislocation. No joint effusion. Medial and lateral joint spaces demonstrate only mild narrowing although there is severe degenerative changes of the patellofemoral joint, stable. Mild chondrocalcinosis. Vascular calcifications noted. Left knee: No fracture or dislocation. Tiny suprapatellar joint effusion. Mild narrowing of the medial joint space height. There is moderate to severe in degenerative changes of the patellofemoral joint. Small tricompartmental marginal osteophytes. Chondrocalcinosis noted. Vascular calcifications appreciated. XR/XR knee standing BI IMPRESSION: Moderate degenerative changes of both knees, primarily affecting the patellofemoral joints and more prominent on the right.
== END 2022-05-07 07:43 | disposition home or self-care (01) ==
LOC: HO.HOSX 07:42
PROVIDERS: Visit Provider Physician Assistant
DX: M17.0 Bilateral primary osteoarthritis of knee (principal)
CPT/HCPCS: 20610; 73560; 73565; 99212; J1040

== ENCOUNTER 2022-05-15 11:54 | Day surgery (SDC) | payer MEDICARE, SELFPAY ==
[2022-02-15 15:21] VITALS: BMI 27.4
--- NOTE | 2022-05-11 12:41 | P.CONAN_ITS ---
Documented by User: Yary Johnson NP 05/11/22 12:44 HPI - Anesthesia Eval Consult details Narrative: 87yo F for Upper Endoscopy *Multiple Med Allergies* PMFSH Active Problems Active Problems: All Active Problems (Updated 05/07/22 @ 13:16 by SHRUTI Soto) Urinary incontinence (Acute) Osteoarthritis of knees, bilateral (Acute) Polyp, stomach (Acute) Epigastric pain (Acute) Hearing loss (Acute) Abdominal pain (Acute) Encounter for annual wellness exam in Medicare patient (Acute) Presbyacusis (Acute) Gout (Acute) GERD (gastroesophageal reflux disease) (Acute) Essential hypertension (Acute) Past Medical History Medical History Abdominal pain Encounter for annual wellness exam in Medicare patient Essential hypertension GERD (gastroesophageal reflux disease) Gout Hearing loss HTN (hypertension) Low back pain with sciatica Osteoarthritis Presbyacusis TIA (transient ischemic attack) Vertigo Family History Family History Father No problems noted. Mother No problems noted. Surgical History Surgical History History of appendectomy History of esophagogastroduodenoscopy (EGD) History of tonsillectomy Hx of cataract extraction S/P implantation of urinary electronic stimulator device Social History Social History (Updated 05/07/22 @ 13:13 by SHRUTI Soto) Alcohol intake: never Patient Tobacco Use Status: Never used Tobacco e-Cigarette/Vaping Use: Never Used Second Hand Smoke Exposure: No Are you DNR?: No Advance Directives: No Advance Directives Information Provided: Yes Nutrition Risks: No Nutritional Risk Current occupational status: retired Meds Allergies Allergy/AdvReac Type Severity Reaction Status Date / Time clindamycin Allergy Intermediate Dizziness Verified 05/09/22 13:33 codeine [CODEINE] Allergy Intermediate sleepiness Verified 05/09/22 13:33 penicillin V Allergy Intermediate Rash Verified 05/09/22 13:33 Sulfa (Sulfonamide Allergy Intermediate Rash Verified 05/09/22 13:33 Antibiotics) sulfamethoxazole Allergy Unknown Verified 05/15/22 12:27 [From Bactrim] trimethoprim [From Bactrim] Allergy Unknown Verified 05/15/22 12:27 colchicine AdvReac Intermediate diarrhea Verified 05/09/22 13:33 Home Medications Medication Instructions Recorded Confirmed Last Taken Type aspirin 81 mg tablet,delayed 81 mg PO DAILY 02/14/21 02/15/22 05/14/22 History release (Adult Aspirin Regimen) ascorbic acid (vitamin C) 500 mg 500 mg PO DAILY 12/07/21 02/15/22 Unknown History capsule cholecalciferol (vitamin D3) 50 50 mcg PO DAILY 12/07/21 02/15/22 Unknown History mcg (2,000 unit) capsule Exam Exam Date and Time: May 11, 2022 1241 Height,Weight and Vital Signs: Height 5 ft 4 in Weight 72.575 kg Pertinent Lab Results Pertinent Lab Results: Laboratory Tests 02/21/22 05/03/22 18:55 09:34 WBC 14.0 H Hgb 13.3 Hct 39.3 Plt Count 171 Sodium 141 Potassium 4.1 Chloride 107 Carbon Dioxide 26 BUN 24 H Creatinine 1.18 Narrative Narrative: EKG 02/2022 Vent. Rate : 073 BPM ? ? Atrial Rate : 073 BPM ?? P-R Int : 240 ms? QRS Dur : 100 ms ? ? QT Int : 382 ms ? ? ? P-R-T Axes : 038 -03 181 degrees ?? QTc Int : 420 ms ? Sinus rhythm with 1st degree A-V block Left ventricular hypertrophy with repolarization abnormality ( R in aVL , [place] product ) Cannot rule out Septal infarct , age undetermined Abnormal ECG When compared with ECG of 10-AUG-2021 07:57, Premature supraventricular complexes are no longer Present [place] interval has increased T wave inversion now evident in Anterolateral leads Assessment and Plan Assessment Anesthesia Assessment: Chart Reviewed Documented by User: Sebastian Saavedra MD 05/15/22 12:42 PMFSH Past Medical History Medical History Abdominal pain Encounter for annual wellness exam in Medicare patient Essential hypertension GERD (gastroesophageal reflux disease) Gout Hearing loss HTN (hypertension) Low back pain with sciatica Osteoarthritis Presbyacusis TIA (transient ischemic attack) Vertigo Family History Family History Father No problems noted. Mother No problems noted. Family history of problems with anesthesia: No Surgical History Surgical History History of appendectomy History of esophagogastroduodenoscopy (EGD) History of tonsillectomy Hx of cataract extraction S/P implantation of urinary electronic stimulator device History of Problems with Anesthesia: No Social History Social History (Updated 05/07/22 @ 13:13 by Maryanne Belcher Jj) Alcohol intake: never Patient Tobacco Use Status: Never used Tobacco e-Cigarette/Vaping Use: Never Used Second Hand Smoke Exposure: No Are you DNR?: No Advance Directives: No Advance Directives Information Provided: Yes Nutrition Risks: No Nutritional Risk Current occupational status: retired [employer] Allergies Allergy/AdvReac Type Severity Reaction Status Date / Time clindamycin Allergy Intermediate Dizziness Verified 05/09/22 13:33 codeine [CODEINE] Allergy Intermediate sleepiness Verified 05/09/22 13:33 penicillin V Allergy Intermediate Rash Verified 05/09/22 13:33 Sulfa (Sulfonamide Allergy Intermediate Rash Verified 05/09/22 13:33 Antibiotics) sulfamethoxazole Allergy Unknown Verified 05/15/22 12:27 [From Bactrim] trimethoprim [From Bactrim] Allergy Unknown Verified 05/15/22 12:27 colchicine AdvReac Intermediate diarrhea Verified 05/09/22 13:33 Home Medications Medication Instructions Recorded Confirmed Last Taken Type aspirin 81 mg tablet,delayed 81 mg PO DAILY 02/14/21 02/15/22 05/14/22 History release (Adult Aspirin Regimen) ascorbic acid (vitamin C) 500 mg 500 mg PO DAILY 12/07/21 02/15/22 Unknown History capsule cholecalciferol (vitamin D3) 50 50 mcg PO DAILY 12/07/21 02/15/22 Unknown History mcg (2,000 unit) capsule Exam Airway Mallampati Class: II TM Dist: >3cm Neck ROM: Full Loose/Missing/Broken Teeth: No Heart: rrr Lungs: clear Assessment and Plan Final Anesthetic Review Family History of Problems with Anesthesia: No History of Problems with Anesthesia: No NPO: Yes ASA Class: III Final Preanesthetic Review: No Changes in Pt Med Stat, Meds/Allgs Chart Reviewed, Consent Obtained/Reviewed and Anes Risks/Benef Reviewed Patient Risk: Intermediate Procedure Risk: Low Anesthetic Plan Anesthetic Plan: MAC: Disposition: Standard PACU
[2022-05-15 12:21] VITALS: BP 189/69; PULSE 46; RESP 18; TEMP 36.6; O2SAT 98
--- NOTE | 2022-05-15 12:37 | P.HPSUR_ITS ---
Pre-Procedural Eval Section A Date of Service: 05/15/22 Section B Chief Complaint: Upper abdominal pain, Details of Present Illness: hx of hamartomatous polyp removed from duodenum Relevant Family History (Specify if Yes): No Relevant Social History: None Present Medications: see Short Stay Collaborative assessment Medical History: Significant History (Essential hypertension GERD (gastroesophageal reflux disease) Gout Hearing loss HTN (hypertension) Low back pain with sciatica Osteoarthritis Presbyacusis TIA (transient ischemic attack) Vertigo) History of Previous Operations: Relevant previous surgery/procedure and date(s) (History of appendectomy History of esophagogastroduodenoscopy (EGD) History of tonsillectomy Hx of cataract extraction S/P implantation of urinary electronic stimulator device) Allergies: Allergies Allergy/AdvReac Type Severity Reaction Status Date / Time clindamycin Allergy Intermediate Dizziness Verified 05/09/22 13:33 codeine [CODEINE] Allergy Intermediate sleepiness Verified 05/09/22 13:33 penicillin V Allergy Intermediate Rash Verified 05/09/22 13:33 Sulfa (Sulfonamide Allergy Intermediate Rash Verified 05/09/22 13:33 Antibiotics) sulfamethoxazole Allergy Unknown Verified 05/15/22 12:27 [From Bactrim] trimethoprim [From Bactrim] Allergy Unknown Verified 05/15/22 12:27 colchicine AdvReac Intermediate diarrhea Verified 05/09/22 13:33 Review of Systems Sugical H&P ROS: Negative: Constitution, Cardiovascular, Respiratory, Neurological, Psychiatric, Hem-Onc, Allergic/Immunologic, Gastrointestinal, Genitourinary, Musculoskeletal, Integumentary, Endocrine and Eyes/Ea rs/Nose/Throat Exam Surgical H&P Exam: Normal: HEENT, Normal: Heart, Normal: Lungs, Normal: Extremities, Normal: Abdomen, Normal: Skin and Normal: Neurological Plan Diagnosis/Plan: Unchanged I have reviewed the history and physical and performed a pertinent physical examination on my patient. No changes have occurred unless specified.
--- NOTE | 2022-05-15 12:40 | W.PM.OPN ---
Operative Note Operative Note Date of Service: 05/15/22 Narrative: Procedure Description: EGD Indication: abdominal pain, hx of hamartomatous polyp of duodenum Anesthesia: MAC FLEXIBLE TRANSORAL UPPER GASTROINTESTINAL ENDOSCOPY UPPER ENDOSCOPY Consent: Indications for the procedure and potential complications of bleeding, perforation, reaction to medications and missed diagnosis were discussed with the patient and informed consent was obtained. Instrument: Olympus GIF H 190 J mid size upper endoscope Monitoring: Vital signs and clinical assessment, continuous EKG monitoring, Pulse oximetry, Carbon Dioxide monitoring and blood pressure monitoring were done throughout the procedure. Procedure: The patient was placed in the left lateral decubitis position and pre-procedure medications were administered and a bite block was placed. The endoscope was inserted into the mouth and advanced under direct vision to the third part of duodenum. A careful inspection was made as the upper endoscope was withdrawn including a retroflexed examination of the proximal stomach; Findings and interventions are described below. Findings: Larynx:normal Esophagus: GE junction at 34 cm, diaphragm hiatus at 38 cm, consistent with 4 cm sliding hiatal hernia, non obstructive schatzki ring seen, with islands of salmon pink mucosa noted consistent with barretts esophagus, bx taken Stomach: Patchy gastric erythema with linear erosions in distal body. Biopsies were obtained. Grade 3 flap valve on retroflexed examination of the cardia. Duodenum: Patchy erythema in bulb, bx taken, no polyps seen Intervention: Biopsies as noted above Impression/Findings: schatzki ring hiatal hernia erosive gastritis duodenitis PLAN: consider changing from H2 talia to PPI consider capsule endoscopy given prior hx of hamartomatous polyp of duodenum, reflux precautions
[2022-05-15 13:15] VITALS: BP 181/71; PULSE 51; RESP 17; TEMP 36.2; O2SAT 94
[2022-05-15 13:30] VITALS: BP 188/79; PULSE 47; RESP 16; TEMP 36.2; O2SAT 97
== END 2022-05-15 14:17 | disposition home or self-care (01) ==
PROVIDERS: PCP Internal Medicine; Visit Provider Internal Medicine Gastroenterology
PROC: 0DJ08ZZ Inspection of Upper Intestinal Tract, Via Natural or Artificial Opening Endoscopic (ICD-10-PCS; CPT 43235; principal; 2022-05-15 13:00)
DX: K29.50 Unspecified chronic gastritis without bleeding (principal); K22.2 Esophageal obstruction; K22.70 Barrett's esophagus without dysplasia; K20.80 Other esophagitis without bleeding; K31.7 Polyp of stomach and duodenum; K21.9 Gastro-esophageal reflux disease without esophagitis; K44.9 Diaphragmatic hernia without obstruction or gangrene; I10 Essential (primary) hypertension; M10.9 Gout, unspecified; H91.10 Presbycusis, unspecified ear; R42 Dizziness and giddiness; Z86.73 Personal history of transient ischemic attack (TIA), and cerebral infarction without residual deficits; Z79.82 Long term (current) use of aspirin; Z79.899 Other long term (current) drug therapy; Z88.0 Allergy status to penicillin; Z88.2 Allergy status to sulfonamides; Z88.1 Allergy status to other antibiotic agents
CPT/HCPCS: 43239; 88305; 88342

== ENCOUNTER 2022-08-29 18:10 | Outpatient (REF) | payer MEDICARE, SELFPAY | END 2022-08-29 18:11 | disposition home or self-care (01) | LOC: HO.LNP 18:10 | PROVIDERS: Visit Provider Internal Medicine | DX: N39.0 Urinary tract infection, site not specified (principal) | CPT/HCPCS: 87086; 87088; 87186 ==

== ENCOUNTER 2022-09-13 15:17 | Outpatient (REF) | payer MEDICARE, SELFPAY ==
[2022-09-13 15:49] LABS: Ammonia 23 umol/L (13-55)
[2022-09-13 16:11] LABS: Alanine Aminotransferase 14 U/L (0-31); Alkaline Phosphatase 65 U/L (39-117); Anion Gap 12 (12-20); Aspartate Amino Transferase 24 U/L (5-31); Bilirubin Total 0.5 mg/dL (0.0-1.0); Blood Urea Nitrogen 33 mg/dL (9-16); Calcium 10.1 mg/dL (8.4-10.2); Carbon Dioxide 29 mmol/L (22-29); Chloride 108 mmol/L (96-108); Estimated Glomerular Filt Rate 30; Glucose Random 98 mg/dL (60-115); Potassium 4.5 mmol/L (3.3-5.1); Sodium 144 mmol/L (135-145); Total Protein 6.4 g/dL (6.5-8.0)
[2022-09-13 16:17] LABS: Basophils Percent Auto 0.3 % (0-2); Eosinophils Absolute Auto 0.2 X10*3/uL (0.0-0.4); Eosinophils Percent Auto 1.9 % (0-4); Hematocrit 39.4 % (37.0-47.0); Hemoglobin 12.9 g/dl (12.0-16.0); Imm Gran Abs Auto 0.02 X10*3/uL (0.00-0.03); Imm Gran Pct Auto 0.2 % (0.0-0.4); Lymphocytes Percent Auto 61.2 % (20-40); MANUAL DIFF FLAG SCAN; Mean Corpuscular HGB Conc 32.7 g/dl (31.0-35.0); Mean Corpuscular Hemoglobin 31.5 pg (27.0-33.0); Mean Corpuscular Volume 96.1 fL (80.0-98.0); Mean Platelet Volume 10.2 fL (9.4-12.3); Monocytes Absolute Auto 0.7 X10*3/uL (0.1-1.2); Monocytes Percent Auto 5.1 % (2-11); Neutrophils Percent Auto 31.3 % (45-73); Platelet Count 189 X10*3/uL (160-400); Red Cell Distribution Width 13.3 % (11.0-16.0); SCAN SMEAR FLAG 1; White Blood Count 12.9 X10*3/uL (4.8-10.8)
[2022-09-13 16:21] LABS: Lymphocytes Absolute Auto 7.9 X10*3/uL (1.2-4.9)
[2022-09-13 16:26] LABS: Thyroid Stimulating Hormone 0.73 uIU/mL (0.32-4.0)
[2022-09-13 16:45] LABS: Folate > 20.0 ng/mL (> or = 4.0); Vitamin B12 686 pg/mL (200-900)
[2022-09-13 17:03] LABS: Appearance Urine Clear; Color Urine Dark Yellow; Glucose Urine UA Negative (Negative); Leukocyte Esterase Urine Negative (Negative); Nitrite Urine Negative (Negative); Specific Gravity - Urine 1.025 (1.005-1.025); Urine Blood Negative (Negative); Urine Ketones Negative (Negative); Urine Protein Trace mg/dL (Neg-Trace)
[2022-09-13 17:07] LABS: SLIDE REVIEW VERIFIED
== END 2022-09-13 15:18 | disposition home or self-care (01) ==
LOC: HO.LAB 15:17
PROVIDERS: PCP Internal Medicine; Visit Provider Internal Medicine
DX: R41.0 Disorientation, unspecified (principal); R30.0 Dysuria
CPT/HCPCS: 36415; 80053; 81003; 82140; 82607; 82746; 84443; 85025

== ENCOUNTER 2022-09-18 12:46 | Outpatient (REF) | payer MEDICARE, SELFPAY | END 2022-09-18 12:47 | disposition home or self-care (01) | LOC: HO.SH 12:46 | PROVIDERS: Visit Provider Internal Medicine | DX: Z01.118 Encounter for examination of ears and hearing with other abnormal findings (principal); H90.3 Sensorineural hearing loss, bilateral | CPT/HCPCS: 92557 ==

== ENCOUNTER 2022-09-20 14:18 | Outpatient (REF) | payer MEDICARE, SELFPAY ==
--- NOTE | ~2022-09-20 | MR_ITS ---
EXAMINATION: MR BRAIN WITHOUT CONTRAST CLINICAL INFORMATION: Confusion, disorientation COMPARISON: MRI of the brain without contrast 08/10/2021 TECHNIQUE: Multiplanar multisequence MR imaging of the brain was obtained without intravenous contrast. FINDINGS: There is no acute infarct on diffusion-weighted imaging. There is no intracranial hemorrhage on iron-sensitive imaging. No extra-axial collection or mass effect/herniation. Confluent periventricular, deep white matter, and posterior brainstem T2 FLAIR hyperintensity consistent with underlying microangiopathy. Chronic encephalomalacia involving the right frontal lobe and left temporo-occipital lobes. New chronic lacunar infarct involving the right mak radiata (series 5 image 15). Stable chronic lacunar infarct in the left thalamus. No hydrocephalus. Moderate generalized volume loss with commensurate sulcal and ventricular prominence. The major flow voids at the skull base are preserved. Encephalomalacia and thinning of the anterior corpus callosum. The midline structures otherwise appear normal. The cerebellar tonsils are normally positioned. The craniocervical junction is normal. Degenerative changes of the upper cervical spine. Marrow signal is within normal limits. The visualized soft tissues are without significant abnormality. No signal abnormality within the paranasal sinuses or within the mastoid air cells. 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
== END 2022-09-20 14:19 | disposition home or self-care (01) ==
LOC: HO.MRI 14:18
PROVIDERS: PCP Internal Medicine; Visit Provider Internal Medicine
DX: R41.0 Disorientation, unspecified (principal)
CPT/HCPCS: 70551

== ENCOUNTER 2022-12-16 14:35 | Emergency (ER) | payer MEDICARE, SELFPAY ==
[2022-12-16] VITALS (8 sets, daily range): BP systolic 178–206; BP diastolic 57–98; PULSE 61–78; RESP 16–20; TEMP 36.5; O2SAT 97–98; BMI 28.6
--- NOTE | ~2022-12-16 | CT_ITS ---
EXAMINATION: CT ABDOMEN AND PELVIS WITHOUT CONTRAST CLINICAL INFORMATION: Pain and nausea. COMPARISON: Upper GI small bowel series 10/21/2018. CT abdomen pelvis 06/06/2015. TECHNIQUE: Multidetector volumetric imaging was performed from the superior aspect of the liver through the pubic symphysis. Sagittal and coronal reformatted images were obtained on the technologist's workstation. This CT examination was performed using dose optimization techniques as appropriate, variously including the following: *Automated exposure control *Adjustment of mA and/or kV according to patient size (this includes techniques or standardized protocols for targeted exams where dose is matched to indication/reason for exam; i.e. extremities or head) *Use of iterative reconstruction technique DLP: 474.73 mGy-cm FINDINGS: LUNG BASES: Dependent atelectasis. Severe coronary disease. Atherosclerotic peripheral vascular disease. Benign macrocalcifications right breast. LIVER, GALLBLADDER, AND BILIARY TREE: Atherosclerotic calcifications. Otherwise no interval change. Cholelithiasis. PANCREAS: Unenhanced pancreas is uniform in attenuation without inflammation, mass or ductal dilation. SPLEEN: Normal in size. ADRENAL GLANDS: Unremarkable. 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 No hydronephrosis. BLADDER: The bladder is distended with urine. Stable urachal remnant at anterior dome. GASTROINTESTINAL TRACT: Moderately severe sigmoid predominant diverticulosis. Bilateral diverticula disease is noted. No evidence for acute diverticulitis. The appendix is not specifically identified. No pericecal inflammation. Normal terminal ileum. No small bowel obstruction. Mild prominence of the jejunum proximally and duodenal C-sweep. This could represent mild enteritis. Again, no transition point to suggest obstruction. Mild chronic prominence of the gastric rugae. Visualized esophagus is unremarkable. No free air or free fluid. No mesenteric abnormality. ABDOMINAL WALL: Tiny fat-containing umbilical hernia. LYMPH NODES: Normal. VASCULAR: Severe atherosclerotic peripheral vascular disease. 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 There is a calcified right uterine fundal myoma. Coarse calcifications in both ovaries. No pelvic free fluid or lymphadenopathy. OSSEOUS STRUCTURES: Degenerative spine disease. No acute abnormality. CT/CT abdomen pelvis wo IV con IMPRESSION: The duodenal C-sweep and proximal jejunum are mildly dilated and thick-walled raising the possibility of proximal enteritis. No bowel obstruction. No free air or free fluid. Moderately severe bilateral diverticulosis without evidence of diverticulitis. Cholelithiasis without evidence of cholecystitis. Severe coronary and atherosclerotic peripheral vascular disease. Fleischner guidelines were followed.
--- NOTE | ~2022-12-16 | XR_ITS ---
EXAMINATION: XR CHEST CLINICAL INFORMATION: Epigastric pain COMPARISON: Chest x-ray on 08/10/2021 TECHNIQUE: Frontal view of the chest was obtained. FINDINGS: No significant abnormality is noted involving the heart, lungs, mediastinum, bony thorax or soft tissues. XR/XR chest 1V IMPRESSION: Unremarkable examination.
--- NOTE | 2022-12-16 14:56 | ED.ABDPAIN ---
HPI - Abdominal Pain General Chief Complaint: Abdominal Pain <ALFRED Lucero - Last Filed: 12/16/22 17:27> Stated Complaint: STOMACH PAIN THIS AM, NO N/V/D PER EMS <ALFRED Lucero - Last Filed: 12/16/22 17:27> Time Seen by Provider: 12/16/22 14:53 <ALFRED Lucero - Last Filed: 12/16/22 17:27> Source: patient, EMS, RN notes reviewed and old records reviewed <ALFRED Lucero - Last Filed: 12/16/22 17:27> Mode of arrival: EMS <ALFRED Lucero - Last Filed: 12/16/22 17:27> History of Present Illness HPI narrative: 87-year-old female with a past medical history of HTN, GERD, gout, osteoarthritis, TIA, presenting to the ED complaining of epigastric abdominal pain since this morning. Reports pain constant, nonradiating. Denies nausea, vomiting, diarrhea, CP/SOB, dysuria/hematuria, headache. Denies taking home medications including antihypertensive this morning. <ALFRED Lucero - Last Filed: 12/16/22 17:27> MD elicited complaint: abdominal pain <ALFRED Lucero Last Filed: 12/16/22 17:27> Onset (ago): hour(s) <ALFRED Lucero - Last Filed: 12/16/22 17:27> Related Data Home Medications: Home Medications Medication Instructions Recorded Confirmed aspirin 81 mg tablet,delayed 81 mg PO DAILY 02/14/21 08/29/22 release (Adult Aspirin Regimen) ascorbic acid (vitamin C) 500 mg 500 mg PO DAILY 12/07/21 08/29/22 capsule cholecalciferol (vitamin D3) 50 50 mcg PO DAILY 12/07/21 08/29/22 mcg (2,000 unit) capsule Previous Rx's Medication Instructions Recorded atenolol 25 mg tablet 25 mg PO DAILY 90 days #90 tabs 05/27/22 famotidine 40 mg tablet (Pepcid) 40 mg PO BEDTIME #30 tabs 05/27/22 meclizine 25 mg tablet 25 mg PO TID PRN dizziness #90 tabs 08/29/22 levofloxacin 500 mg tablet 500 mg PO DAILY 7 days #7 tabs 09/07/22 <ALFRED Lucero Last Filed: 12/16/22 17:27> Allergies/Adverse Reactions: Allergies Allergy/AdvReac Type Severity Reaction Status Date / Time clindamycin Allergy Intermediate Dizziness Verified 08/29/22 11:04 codeine [CODEINE] Allergy Intermediate sleepiness Verified 08/29/22 11:04 penicillin V Allergy Intermediate Rash Verified 08/29/22 11:04 Sulfa (Sulfonamide Allergy Intermediate Rash Verified 08/29/22 11:04 Antibiotics) sulfamethoxazole Allergy Unknown Verified 08/29/22 11:04 [From Bactrim] trimethoprim [From Bactrim] Allergy Unknown Verified 08/29/22 11:04 colchicine AdvReac Intermediate diarrhea Verified 08/29/22 11:04 <ALFRED Lucero Last Filed: 12/16/22 17:27> Review of Systems Review of Systems Constitutional: No Fever, No Chills, No Fatigue, No Malaise ENT/Mouth: No Hearing loss, No Ear Pain, No sore throat, No Rhinorrhea, No Swallowing Difficulty Eyes: No Eye Pain, No Swelling, No Redness, No Vision Changes Cardiovascular: No Chest Pain, No SOB, No Dyspnea on Exertion, No Edema, No Palpitations Respiratory: No Cough, No Sputum, No Dyspnea Gastrointestinal: No Nausea, No Vomiting, No Diarrhea, No Constipation, +Abdominal pain, No Hematochezia, No Melena Genitourinary: No Dysuria, No Hematuria, No Urinary Incontinence/retention, No Flank Pain Musculoskeletal: No joint pain, No Myalgias, No Joint Swelling Skin: No Skin Lesions, No rash Neuro: No Weakness, No Numbness, No Dizziness, No Headache <ALFRED Lucero Last Filed: 12/16/22 17:27> Yes all other systems are reviewed and are negative <ALFRED Lucero Last Filed: 12/16/22 17:27> Constitutional: Reports as per HPI <ALFRED Lucero Last Filed: 12/16/22 17:27> [facility] Past Medical History Attestation statement: The following information was validated with the patient. <ALFRED Lucero Last Filed: 12/16/22 17:27> Medical History: Medical History Abdominal pain Encounter for annual wellness exam in Medicare patient Essential hypertension GERD (gastroesophageal reflux disease) Gout Hearing loss HTN (hypertension) Low back pain with sciatica Osteoarthritis Presbyacusis TIA (transient ischemic attack) Vertigo <ALFRED Lucero - Last Filed: 12/16/22 17:27> Surgical History: Surgical History History of appendectomy History of esophagogastroduodenoscopy (EGD) History of tonsillectomy Hx of cataract extraction S/P implantation of urinary electronic stimulator device <ALFRED Lucero - Last Filed: 12/16/22 17:27> Family History Family History: Family History Father No problems noted. Mother No problems noted. <ALFRED Lucero - Last Filed: 12/16/22 17:27> Social History Social History: Social History Housing: Apartment Alcohol intake: never Patient Tobacco Use Status: Never used Tobacco Smoked in Last 30 Days: No e-Cigarette/Vaping Use: Never Used Second Hand Smoke Exposure: No Use of substances other than those prescribed or required for medical reasons: No Advance Directives: No Advance Directives Information Provided: No service: No Current occupational status: retired Cognitive needs: Yes Hearing needs: Yes Vision needs: No <ALFRED Lucero - Last Filed: 12/16/22 17:27> Physical Exam ED Vital Signs: Vital Signs - 24 hr 12/16/22 14:44 12/16/22 16:14 12/16/22 16:54 Temperature 97.7 F Pulse Rate 78 61 Pulse Rate [Left Apical] 68 Respiratory Rate 18 20 Blood Pressure 204/80 H 206/81 H Pulse Oximetry 97 Oxygen Delivery Method Room Air Oxygen Flow Rate 99 12/16/22 16:49 12/16/22 16:59 12/16/22 17:09 Temperature Pulse Rate 63 63 62 Pulse Rate [Left Apical] Respiratory Rate 16 16 16 Blood Pressure 191/77 H 187/70 H 190/67 H Pulse Oximetry 97 97 98 Oxygen Delivery Method Room Air Room Air Room Air Oxygen Flow Rate BMI result Body Mass Index 28.6 <ALFRED Lucero - Last Filed: 12/16/22 17:27> Vital Signs - 24 hr 12/16/22 14:44 12/16/22 16:14 12/16/22 16:54 Temperature 97.7 F Pulse Rate 78 61 Pulse Rate [Left Apical] 68 Respiratory Rate 18 20 Blood Pressure 204/80 H 206/81 H Pulse Oximetry 97 Oxygen Delivery Method Room Air Oxygen Flow Rate 99 12/16/22 16:49 12/16/22 16:59 12/16/22 17:09 Temperature Pulse Rate 63 63 62 Pulse Rate [Left Apical] Respiratory Rate 16 16 16 Blood Pressure 191/77 H 187/70 H 190/67 H Pulse Oximetry 97 97 98 Oxygen Delivery Method Room Air Room Air Room Air Oxygen Flow Rate BMI result Body Mass Index 28.6 <Shabbir Hairston - Last Filed: 12/16/22 22:17> Const General: cooperative, healthy appearing and no acute distress <ALFRED Lucero - Last Filed: 12/16/22 17:27> Orientation/consciousness: patient oriented x3 <ALFRED Lucero - Last Filed: 12/16/22 17:27> Limitations: no limitations <ALFRED Lucero - Last Filed: 12/16/22 17:27> HENMT Head: Yes normal to inspection and Yes atraumatic <ALFRED Lucero - Last Filed: 12/16/22 17:27> Ears: hearing grossly normal bilaterally <ALFRED Lucero - Last Filed: 12/16/22 17:27> General nose exam: Normal external nose present <ALFRED Lucero - Last Filed: 12/16/22 17:27> Face and sinus: Yes normal facial exam <ALFRED Lucero - Last Filed: 12/16/22 17:27> Eyes General: appearance normal, both eyes and all related structures <ALFRED Lucero - Last Filed: 12/16/22 17:27> EOM: EOMs intact bilaterally <ALFRED Lucero - Last Filed: 12/16/22 17:27> Neck Neck: Yes normal visual inspection and Yes no meningeal signs <ALFRED Lucero - Last Filed: 12/16/22 17:27> Resp Effort & Inspection: normal respiratory effort and no respiratory distress <ALFRED Lucero - Last Filed: 12/16/22 17:27> Auscultation: clear to auscultation bilaterally <ALFRED Lucero - Last Filed: 12/16/22 17:27> Cardio Rate: regular rate <ALFRED Lucero - Last Filed: 12/16/22 17:27> Heart sounds: S1 normal heart sound present and S2 normal heart sound present <ALFRED Lucero - Last Filed: 12/16/22 17:27> GI Inspection: Yes normal to inspection <ALFRED Lucero Last Filed: 12/16/22 17:27> Palpation (GI): Soft to palpation, Tenderness to palpation present (GI) in the epigastrum; with no rebound tenderness, no guarding and not rigid <ALFRED Lucero - Last Filed: 12/16/22 17:27> Skin Rashes: no rashes <ALFRED Lucero Last Filed: 12/16/22 17:27> Wounds: no wounds <ALFRED Lucero - Last Filed: 12/16/22 17:27> Neuro General: patient oriented x3, tone normal and no meningeal signs <ALFRED Lucero - Last Filed: 12/16/22 17:27> Gait exam (Neuro): Normal gait present <ALFRED Lucero - Last Filed: 12/16/22 17:27> Extrem Other: 2+ bilateral LE pitting edema (chronic per patient) <ALFRED Lucero - Last Filed: 12/16/22 17:27> Course Course Course Narrative: -1615--mild leukocytosis of 11.8. BUN chronically elevated. BNP 479 > no available priors to compare XR chest 1V IMPRESSION: Unremarkable examination. -1706--BP 187/70 after home dose of Atenolol and 5 mg IV Labetalol -troponin 20.6 likely demand from hypertension > will obtain [address] abdomen pelvis wo IV con IMPRESSION: The duodenal C-sweep and proximal jejunum are mildly dilated and thick-walled raising the possibility of proximal enteritis. No bowel obstruction. No free air or free fluid. Moderately severe bilateral diverticulosis without evidence of diverticulitis. Cholelithiasis without evidence of cholecystitis. Severe coronary and atherosclerotic peripheral vascular disease.? Fleischner guidelines were followed. >1719--results discussed. On re-evaluation patient reports mild symptomatic improvement, reports constant dull pain. Patient lives home alone. Will continue to monitor, repeat troponin & re-evaluate pain to decide admission versus discharge -1800-- ED care transferred to ALFRED Bazzi pending repeat troponin and re-evaluation <ALFRED Lucero - Last Filed: 12/16/22 17:27> Reevaluation(s) Reevaluation #1: Patient received in sign-out it initially of pending repeat troponin and re-evaluation. Patient is currently pain-free, she denies any abdominal pain. Admission or had any chest pain. Her repeat troponin came back at 35 which was slightly increased from previous but not likely to indicate ACS event. The patient's troponin leak is likely related to her significant hypertension which was addressed. She is so for discharge <Shabbir Hairston - Last Filed: 12/16/22 22:17> Time: 22:17 <Shabbir Hairston - Last Filed: 12/16/22 22:17> Medical Decision Making Medical Decision Making MDM Narrative: 87-year-old female with a past medical history of HTN, GERD, gout, osteoarthritis, TIA, presenting to the ED complaining of epigastric abdominal pain since this morning. Reports pain constant, nonradiating. On exam hypertensive, appears in pain, abdomen soft with epigastric tenderness, no rebound or guarding, bilateral LE pitting edema noted which patient reports is chronic. Concern for atypical ACS vs hypertensive urgency/emergency vs pancreatitis vs cholecystitis/lithiasis. Lower suspicion for dissection, appendicitis/diverticulitis at this time Plan: EKG, labs, UA, CXR, CT AP, blood pressure control Please refer to course for remaining clinical decision making, interpretation of labs/imaging results, and discussions with consultants and/or family members. <ALFRED Lucero - Last Filed: 12/16/22 17:27> Differential Diagnosis Differential Diagnoses: The differential diagnosis associated with the presentation includes <ALFRED Lucero Last Filed: 12/16/22 17:27> As above <ALFRED Lucero - Last Filed: 12/16/22 17:27> Admission/Observation Consideration of admission/observation: Escalation of care including admission/observation considered <ALFRED Lucero - Last Filed: 12/16/22 17:27> Lab Data MDM Lab Attestation statement: I reviewed the patient's lab results. <ALFRED Lucero - Last Filed: 12/16/22 17:27> Result Diagrams: 12/16/22 15:36 12/16/22 15:36 <ALFRED Lucero - Last Filed: 12/16/22 17:27> Labs: Lab Results 12/16/22 12/16/22 12/16/22 Range/Units 15:35 15:36 15:36 WBC 11.8 H (4.8-10.8) X10*3/uL RBC 4.22 (4.20-5.50) X10*6/uL Hgb 13.1 (12.0-16.0) g/dl Hct 39.0 (37.0-47.0) % MCV 92.4 (80.0-98.0) fL MCH 31.0 (27.0-33.0) pg MCHC 33.6 (31.0-35.0) g/dl RDW 13.2 (11.0-16.0) % Plt Count 166 (160-400) X10*3/uL MPV 10.3 (9.4-12.3) fL Immature Gran % (Auto) 0.2 (0.0-0.4) % Neut % (Auto) 34.8 L (45-73) % Lymph % (Auto) 56.1 H (20-40) % [place] % (Auto) 7.3 (2-11) % Eos % (Auto) 1.3 (0-4) % Baso % (Auto) 0.3 (0-2) % Lymph # (Auto) 6.6 H (1.2-4.9) X10*3/uL [place] # (Auto) 0.9 (0.1-1.2) X10*3/uL Eos # (Auto) 0.2 (0.0-0.4) X10*3/uL Baso # (Auto) 0.0 (0.0-0.2) X10*3/uL Abs Immat Gran (auto) 0.02 (0.00-0.03) X10*3/uL Absolute Neuts (auto) 4.1 (2.0-8.3) x10*3/uL Absolute Nucleated RBC 0.000 (0.0-0.012) X10*3/uL Nucleated RBC % (auto) 0.0 (0.0-0.2) /100WBC PT 11.0 (10.0-13.1) SEC INR 1.0 (0.9-1.1) Sodium 139 (135-145) mmol/L Potassium 4.3 (3.3-5.1) mmol/L Chloride 106 (96-108) mmol/L Carbon Dioxide 25 (22-29) mmol/L Anion Gap 12 (12-20) BUN 23 H (9-16) mg/dL Creatinine 1.12 (0.5-1.4) mg/dL Estim Creat Clear Calc 33.9 Estimated GFR 46 Random Glucose 95 (60-115) mg/dL Calcium 9.5 (8.4-10.2) mg/dL Magnesium 1.9 (1.6-2.6) mg/dL Total Bilirubin 0.9 (0.0-1.0) mg/dL Direct Bilirubin 0.2 (0.0-0.5) mg/dL AST 21 (5-31) U/L ALT 14 (0-31) U/L Alkaline Phosphatase 75 (39-117) U/L Troponin I High Sens (<3.5-17.0) ng/L B-Natriuretic Peptide (<100) pg/mL Total Protein 6.7 (6.5-8.0) g/dL Albumin 4.1 (3.5-5.0) g/dL Lipase 25 (8-78) U/L Urine Color Urine Appearance Urine pH (5.0-9.0) Ur Specific [place] (1.005-1.025) Urine Protein (Neg-Trace) mg/dL Urine Glucose (UA) (Negative) mg/dL Urine Ketones (Negative) mg/dL Urine Blood (Negative) Urine Nitrite (Negative) Ur Leukocyte Esterase (Negative) Urine RBC (0-2) /HPF Urine WBC (0-5) /HPF Ur Squamous Epith Cells (0-2) /HPF Urine Bacteria (None Seen) Hyaline Casts (0-2) /LPF 12/16/22 12/16/22 12/16/22 Range/Units 15:36 15:36 20:02 WBC (4.8-10.8) X10*3/uL RBC (4.20-5.50) X10*6/uL Hgb (12.0-16.0) g/dl Hct (37.0-47.0) % MCV (80.0-98.0) fL MCH (27.0-33.0) pg MCHC (31.0-35.0) g/dl RDW (11.0-16.0) % Plt Count (160-400) X10*3/uL MPV (9.4-12.3) fL Immature Gran % (Auto) (0.0-0.4) % Neut % (Auto) (45-73) % Lymph % (Auto) (20-40) % [place] % (Auto) (2-11) % Eos % (Auto) (0-4) % Baso % (Auto) (0-2) % Lymph # (Auto) (1.2-4.9) X10*3/uL [place] # (Auto) (0.1-1.2) X10*3/uL Eos # (Auto) (0.0-0.4) X10*3/uL Baso # (Auto) (0.0-0.2) X10*3/uL Abs Immat Gran (auto) (0.00-0.03) X10*3/uL Absolute Neuts (auto) (2.0-8.3) x10*3/uL Absolute Nucleated RBC (0.0-0.012) X10*3/uL Nucleated RBC % (auto) (0.0-0.2) /100WBC PT (10.0-13.1) SEC INR (0.9-1.1) Sodium (135-145) mmol/L Potassium (3.3-5.1) mmol/L Chloride (96-108) mmol/L Carbon Dioxide (22-29) mmol/L Anion Gap (12-20) BUN (9-16) mg/dL Creatinine (0.5-1.4) mg/dL Estim Creat Clear Calc Estimated GFR Random Glucose (60-115) mg/dL Calcium (8.4-10.2) mg/dL Magnesium (1.6-2.6) mg/dL Total Bilirubin (0.0-1.0) mg/dL Direct Bilirubin (0.0-0.5) mg/dL AST (5-31) U/L ALT (0-31) U/L Alkaline Phosphatase (39-117) U/L Troponin I High Sens 20.6 H 35.0 H D (<3.5-17.0) ng/L B-Natriuretic Peptide 479 H (<100) pg/mL Total Protein (6.5-8.0) g/dL Albumin (3.5-5.0) g/dL Lipase (8-78) U/L Urine Color Urine Appearance Urine pH (5.0-9.0) Ur Specific [place] (1.005-1.025) Urine Protein (Neg-Trace) mg/dL Urine Glucose (UA) (Negative) mg/dL Urine Ketones (Negative) mg/dL Urine Blood (Negative) Urine Nitrite (Negative) Ur Leukocyte Esterase (Negative) Urine RBC (0-2) /HPF Urine WBC (0-5) /HPF Ur Squamous Epith Cells (0-2) /HPF Urine Bacteria (None Seen) Hyaline Casts (0-2) /LPF 12/16/22 Range/Units 21:55 WBC (4.8-10.8) X10*3/uL RBC (4.20-5.50) X10*6/uL Hgb (12.0-16.0) g/dl Hct (37.0-47.0) % MCV (80.0-98.0) fL MCH (27.0-33.0) pg MCHC (31.0-35.0) g/dl RDW (11.0-16.0) % Plt Count (160-400) X10*3/uL MPV (9.4-12.3) fL Immature Gran % (Auto) (0.0-0.4) % Neut % (Auto) (45-73) % Lymph % (Auto) (20-40) % [place] % (Auto) (2-11) % Eos % (Auto) (0-4) % Baso % (Auto) (0-2) % Lymph # (Auto) (1.2-4.9) X10*3/uL [place] # (Auto) (0.1-1.2) X10*3/uL Eos # (Auto) (0.0-0.4) X10*3/uL Baso # (Auto) (0.0-0.2) X10*3/uL Abs Immat Gran (auto) (0.00-0.03) X10*3/uL Absolute Neuts (auto) (2.0-8.3) x10*3/uL Absolute Nucleated RBC (0.0-0.012) X10*3/uL Nucleated RBC % (auto) (0.0-0.2) /100WBC PT (10.0-13.1) SEC INR (0.9-1.1) Sodium (135-145) mmol/L Potassium (3.3-5.1) mmol/L Chloride (96-108) mmol/L Carbon Dioxide (22-29) mmol/L Anion Gap (12-20) BUN (9-16) mg/dL Creatinine (0.5-1.4) mg/dL Estim Creat Clear Calc Estimated GFR Random Glucose (60-115) mg/dL Calcium (8.4-10.2) mg/dL Magnesium (1.6-2.6) mg/dL Total Bilirubin (0.0-1.0) mg/dL Direct Bilirubin (0.0-0.5) mg/dL AST (5-31) U/L ALT (0-31) U/L Alkaline Phosphatase (39-117) U/L Troponin I High Sens (<3.5-17.0) ng/L B-Natriuretic Peptide (<100) pg/mL Total Protein (6.5-8.0) g/dL Albumin (3.5-5.0) g/dL Lipase (8-78) U/L Urine Color Yellow Urine Appearance Clear Urine pH 8.0 (5.0-9.0) Ur Specific [place] 1.010 (1.005-1.025) Urine Protein Negative (Neg-Trace) mg/dL Urine Glucose (UA) Negative (Negative) mg/dL Urine Ketones Negative (Negative) mg/dL Urine Blood Negative (Negative) Urine Nitrite Negative (Negative) Ur Leukocyte Esterase Trace H (Negative) Urine RBC 0-2 (0-2) /HPF Urine WBC 0-5 (0-5) /HPF Ur Squamous Epith Cells 0-2 (0-2) /HPF Urine Bacteria 1+ (None Seen) Hyaline Casts 0-2 (0-2) /LPF <ALFRED Lucero - Last Filed: 12/16/22 17:27> Lab Results 12/16/22 12/16/22 12/16/22 Range/Units 15:35 15:36 15:36 WBC 11.8 H (4.8-10.8) X10*3/uL RBC 4.22 (4.20-5.50) X10*6/uL Hgb 13.1 (12.0-16.0) g/dl Hct 39.0 (37.0-47.0) % MCV 92.4 (80.0-98.0) fL MCH 31.0 (27.0-33.0) pg MCHC 33.6 (31.0-35.0) g/dl RDW 13.2 (11.0-16.0) % Plt Count 166 (160-400) X10*3/uL MPV 10.3 (9.4-12.3) fL Immature Gran % (Auto) 0.2 (0.0-0.4) % Neut % (Auto) 34.8 L (45-73) % Lymph % (Auto) 56.1 H (20-40) % [place] % (Auto) 7.3 (2-11) % Eos % (Auto) 1.3 (0-4) % Baso % (Auto) 0.3 (0-2) % Lymph # (Auto) 6.6 H (1.2-4.9) X10*3/uL [place] # (Auto) 0.9 (0.1-1.2) X10*3/uL Eos # (Auto) 0.2 (0.0-0.4) X10*3/uL Baso # (Auto) 0.0 (0.0-0.2) X10*3/uL Abs Immat Gran (auto) 0.02 (0.00-0.03) X10*3/uL Absolute Neuts (auto) 4.1 (2.0-8.3) x10*3/uL Absolute Nucleated RBC 0.000 (0.0-0.012) X10*3/uL Nucleated RBC % (auto) 0.0 (0.0-0.2) /100WBC PT 11.0 (10.0-13.1) SEC INR 1.0 (0.9-1.1) Sodium 139 (135-145) mmol/L Potassium 4.3 (3.3-5.1) mmol/L Chloride 106 (96-108) mmol/L Carbon Dioxide 25 (22-29) mmol/L Anion Gap 12 (12-20) BUN 23 H (9-16) mg/dL Creatinine 1.12 (0.5-1.4) mg/dL Estim Creat Clear Calc 33.9 Estimated GFR 46 Random Glucose 95 (60-115) mg/dL Calcium 9.5 (8.4-10.2) mg/dL Magnesium 1.9 (1.6-2.6) mg/dL Total Bilirubin 0.9 (0.0-1.0) mg/dL Direct Bilirubin 0.2 (0.0-0.5) mg/dL AST 21 (5-31) U/L ALT 14 (0-31) U/L Alkaline Phosphatase 75 (39-117) U/L Troponin I High Sens (<3.5-17.0) ng/L B-Natriuretic Peptide (<100) pg/mL Total Protein 6.7 (6.5-8.0) g/dL Albumin 4.1 (3.5-5.0) g/dL Lipase 25 (8-78) U/L Urine Color Urine Appearance Urine pH (5.0-9.0) Ur Specific [place] (1.005-1.025) Urine Protein (Neg-Trace) mg/dL Urine Glucose (UA) (Negative) mg/dL Urine Ketones (Negative) mg/dL Urine Blood (Negative) Urine Nitrite (Negative) Ur Leukocyte Esterase (Negative) Urine RBC (0-2) /HPF Urine WBC (0-5) /HPF Ur Squamous Epith Cells (0-2) /HPF Urine Bacteria (None Seen) Hyaline Casts (0-2) /LPF 12/16/22 12/16/22 12/16/22 Range/Units 15:36 15:36 20:02 WBC (4.8-10.8) X10*3/uL RBC (4.20-5.50) X10*6/uL Hgb (12.0-16.0) g/dl Hct (37.0-47.0) % MCV (80.0-98.0) fL MCH (27.0-33.0) pg MCHC (31.0-35.0) g/dl RDW (11.0-16.0) % Plt Count (160-400) X10*3/uL MPV (9.4-12.3) fL Immature Gran % (Auto) (0.0-0.4) % Neut % (Auto) (45-73) % Lymph % (Auto) (20-40) % [place] % (Auto) (2-11) % Eos % (Auto) (0-4) % Baso % (Auto) (0-2) % Lymph # (Auto) (1.2-4.9) X10*3/uL [place] # (Auto) (0.1-1.2) X10*3/uL Eos # (Auto) (0.0-0.4) X10*3/uL Baso # (Auto) (0.0-0.2) X10*3/uL Abs Immat Gran (auto) (0.00-0.03) X10*3/uL Absolute Neuts (auto) (2.0-8.3) x10*3/uL Absolute Nucleated RBC (0.0-0.012) X10*3/uL Nucleated RBC % (auto) (0.0-0.2) /100WBC PT (10.0-13.1) SEC INR (0.9-1.1) Sodium (135-145) mmol/L Potassium (3.3-5.1) mmol/L Chloride (96-108) mmol/L Carbon Dioxide (22-29) mmol/L Anion Gap (12-20) BUN (9-16) mg/dL Creatinine (0.5-1.4) mg/dL Estim Creat Clear Calc Estimated GFR Random Glucose (60-115) mg/dL Calcium (8.4-10.2) mg/dL Magnesium (1.6-2.6) mg/dL Total Bilirubin (0.0-1.0) mg/dL Direct Bilirubin (0.0-0.5) mg/dL AST (5-31) U/L ALT (0-31) U/L Alkaline Phosphatase (39-117) U/L Troponin I High Sens 20.6 H 35.0 H D (<3.5-17.0) ng/L B-Natriuretic Peptide 479 H (<100) pg/mL Total Protein (6.5-8.0) g/dL Albumin (3.5-5.0) g/dL Lipase (8-78) U/L Urine Color Urine Appearance Urine pH (5.0-9.0) Ur Specific [place] (1.005-1.025) Urine Protein (Neg-Trace) mg/dL Urine Glucose (UA) (Negative) mg/dL Urine Ketones (Negative) mg/dL Urine Blood (Negative) Urine Nitrite (Negative) Ur Leukocyte Esterase (Negative) Urine RBC (0-2) /HPF Urine WBC (0-5) /HPF Ur Squamous Epith Cells (0-2) /HPF Urine Bacteria (None Seen) Hyaline Casts (0-2) /LPF 12/16/22 Range/Units 21:55 WBC (4.8-10.8) X10*3/uL RBC (4.20-5.50) X10*6/uL Hgb (12.0-16.0) g/dl Hct (37.0-47.0) % MCV (80.0-98.0) fL MCH (27.0-33.0) pg MCHC (31.0-35.0) g/dl RDW (11.0-16.0) % Plt Count (160-400) X10*3/uL MPV (9.4-12.3) fL Immature Gran % (Auto) (0.0-0.4) % Neut % (Auto) (45-73) % Lymph % (Auto) (20-40) % [place] % (Auto) (2-11) % Eos % (Auto) (0-4) % Baso % (Auto) (0-2) % Lymph # (Auto) (1.2-4.9) X10*3/uL [place] # (Auto) (0.1-1.2) X10*3/uL Eos # (Auto) (0.0-0.4) X10*3/uL Baso # (Auto) (0.0-0.2) X10*3/uL Abs Immat Gran (auto) (0.00-0.03) X10*3/uL Absolute Neuts (auto) (2.0-8.3) x10*3/uL Absolute Nucleated RBC (0.0-0.012) X10*3/uL Nucleated RBC % (auto) (0.0-0.2) /100WBC PT (10.0-13.1) SEC INR (0.9-1.1) Sodium (135-145) mmol/L Potassium (3.3-5.1) mmol/L Chloride (96-108) mmol/L Carbon Dioxide (22-29) mmol/L Anion Gap (12-20) BUN (9-16) mg/dL Creatinine (0.5-1.4) mg/dL Estim Creat Clear Calc Estimated GFR Random Glucose (60-115) mg/dL Calcium (8.4-10.2) mg/dL Magnesium (1.6-2.6) mg/dL Total Bilirubin (0.0-1.0) mg/dL Direct Bilirubin (0.0-0.5) mg/dL AST (5-31) U/L ALT (0-31) U/L Alkaline Phosphatase (39-117) U/L Troponin I High Sens (<3.5-17.0) ng/L B-Natriuretic Peptide (<100) pg/mL Total Protein (6.5-8.0) g/dL Albumin (3.5-5.0) g/dL Lipase (8-78) U/L Urine Color Yellow Urine Appearance Clear Urine pH 8.0 (5.0-9.0) Ur Specific [place] 1.010 (1.005-1.025) Urine Protein Negative (Neg-Trace) mg/dL Urine Glucose (UA) Negative (Negative) mg/dL Urine Ketones Negative (Negative) mg/dL Urine Blood Negative (Negative) Urine Nitrite Negative (Negative) Ur Leukocyte Esterase Trace H (Negative) Urine RBC 0-2 (0-2) /HPF Urine WBC 0-5 (0-5) /HPF Ur Squamous Epith Cells 0-2 (0-2) /HPF Urine Bacteria 1+ (None Seen) Hyaline Casts 0-2 (0-2) /LPF <Shabbir Hairston - Last Filed: 12/16/22 22:17> Radiology Impression Discussion of test interpretation with radiology: I have reviewed the radiologist's reading. <ALFRED Lucero - Last Filed: 12/16/22 17:27> External Record Review External record reviewed: Inpatient record, Office record, Outpatient record, Prior outpatient labs, Prior outpatient radiology, Primary care record and Outside ED record <ALFRED Lucero - Last Filed: 12/16/22 17:27> Medications Administered Discontinued Medications Generic Name Dose Route Start Last Admin Trade Name Freq PRN Reason Stop Dose Admin Atenolol 25 mg 12/16/22 15:02 12/16/22 15:24 Atenolol 25 Mg Tablet PO 12/16/22 15:03 25 mg ONCE ONE Administration Protocol Famotidine 20 mg 12/16/22 15:01 12/16/22 16:27 Famotidine/Pf 20 Mg/2 Ml Vial IVPUSH 12/16/22 15:02 20 mg ONCE ONE Administration Labetalol HCl 5 mg 12/16/22 16:14 12/16/22 16:27 Labetalol Hcl 100 Mg/20 Ml Vial IVPUSH 12/16/22 16:15 5 mg ONCE ONE Administration Morphine Sulfate 2 mg 12/16/22 15:02 12/16/22 16:28 Morphine Sulfate 2 Mg/Ml Cartridge IVPUSH 12/16/22 15:03 2 mg ONCE ONE Administration Protocol <ALFRED Lucero - Last Filed: 12/16/22 17:27> Medications Administered Discontinued Medications Generic Name Dose Route Start Last Admin Trade Name Freq PRN Reason Stop Dose Admin Atenolol 25 mg 12/16/22 15:02 12/16/22 15:24 Atenolol 25 Mg Tablet PO 12/16/22 15:03 25 mg ONCE ONE Administration Protocol Famotidine 20 mg 12/16/22 15:01 12/16/22 16:27 Famotidine/Pf 20 Mg/2 Ml Vial IVPUSH 12/16/22 15:02 20 mg ONCE ONE Administration Labetalol HCl 5 mg 12/16/22 16:14 12/16/22 16:27 Labetalol Hcl 100 Mg/20 Ml Vial IVPUSH 12/16/22 16:15 5 mg ONCE ONE Administration Morphine Sulfate 2 mg 12/16/22 15:02 12/16/22 16:28 Morphine Sulfate 2 Mg/Ml [facility] IV[facility]USH 12/16/22 15:03 2 mg ONCE ONE Administration Protocol <Shabbir Hairston - Last Filed: 12/16/22 22:17> Discharge Plan Discharge Clinical Impression: Enteritis, Hypertension <ALFRED Lucero - Last Filed: 12/16/22 17:27> Patient Disposition: Home, Self-Care <ALFRED Lucero - Last Filed: 12/16/22 17:27> Instructions: Hypertension (ED), Enteritis (ED) <ALFRED Lucero - Last Filed: 12/16/22 17:27> Additional Instructions: Your blood pressures are elevated today, please do not miss any doses of her home medicine. Your CT scan shows enteritis. Please increase fluid intake. Practice a bland diet Have close follow-up with her doctor If symptoms persist or worsen, constant worsening abdominal pain, nausea/vomiting, you are unable to eat or drink or have chest pain return to the ED <ALFRED Lucero - Last Filed: 12/16/22 17:27> Prescriptions: No Action atenolol 25 mg tablet 25 mg PO DAILY 90 Days Qty: 90 3RF famotidine [Pepcid] 40 mg tablet 40 mg PO BEDTIME Qty: 30 6RF levofloxacin 500 mg tablet 500 mg PO DAILY 7 Days Qty: 7 0RF aspirin [Adult Aspirin Regimen] 81 mg tablet,delayed release (DR/EC) 81 mg PO DAILY meclizine 25 mg tablet 25 mg PO TID PRN (Reason: dizziness) Qty: 90 6RF ascorbic acid (vitamin C) 500 mg capsule 500 mg PO DAILY cholecalciferol (vitamin D3) 50 mcg (2,000 unit) capsule 50 mcg PO DAILY <ALFRED Lucero - Last Filed: 12/16/22 17:27> Referrals: Elodia Heard MD [Primary Care Provider] - 2 days <ALFRED Lucero Last Filed: 12/16/22 17:27>
--- NOTE | 2022-12-16 15:01 | ECG_ITS ---
Test Reason : HYPERTENTION Blood Pressure : / mmHG Vent. Rate : 067 BPM Atrial Rate : 067 BPM P-R Int : 222 ms QRS Dur : 104 ms QT Int : 440 ms P-R-T Axes : 051 -01 000 degrees QTc Int : 464 ms Sinus rhythm with 1st degree A-V block Moderate voltage criteria for LVH, may be normal variant ( R in aVL , [place] product ) Septal infarct (cited on or before 21-FEB-2022) Abnormal ECG When compared with ECG of 21-FEB-2022 18:38, Questionable change in initial forces of Septal leads Non-specific change in ST segment in Anterior leads T wave inversion no longer evident in Anterolateral leads Referred By: Helene Tavarez Electronically Signed By:BRUCE MATHEWS MD
[2022-12-16] MEDS: atenoloL 25 MG TABLET PO (15:24)
[2022-12-16 15:44] LABS: Basophils Percent Auto 0.3 % (0-2); Eosinophils Absolute Auto 0.2 X10*3/uL (0.0-0.4); Eosinophils Percent Auto 1.3 % (0-4); Hemoglobin 13.1 g/dl (12.0-16.0); Imm Gran Abs Auto 0.02 X10*3/uL (0.00-0.03); Imm Gran Pct Auto 0.2 % (0.0-0.4); Mean Corpuscular HGB Conc 33.6 g/dl (31.0-35.0); Mean Corpuscular Volume 92.4 fL (80.0-98.0); Mean Platelet Volume 10.3 fL (9.4-12.3); Monocytes Absolute Auto 0.9 X10*3/uL (0.1-1.2); Monocytes Percent Auto 7.3 % (2-11); Neutrophils Absolute Auto 4.1 x10*3/uL (2.0-8.3); Neutrophils Percent Auto 34.8 % (45-73); Platelet Count 166 X10*3/uL (160-400); Red Blood Count 4.22 X10*6/uL (4.20-5.50); Red Cell Distribution Width 13.2 % (11.0-16.0); SCAN SMEAR FLAG 1; White Blood Count 11.8 X10*3/uL (4.8-10.8)
[2022-12-16 15:46] LABS: Lymphocytes Absolute Auto 6.6 X10*3/uL (1.2-4.9)
[2022-12-16 15:47] LABS: Lymphocytes Percent Auto 56.1 % (20-40); MANUAL DIFF FLAG NO
[2022-12-16 16:09] LABS: Alanine Aminotransferase 14 U/L (0-31); Albumin Level 4.1 g/dL (3.5-5.0); Alkaline Phosphatase 75 U/L (39-117); Anion Gap 12 (12-20); Aspartate Amino Transferase 21 U/L (5-31); Bilirubin Direct 0.2 mg/dL (0.0-0.5); Bilirubin Total 0.9 mg/dL (0.0-1.0); Blood Urea Nitrogen 23 mg/dL (9-16); Calcium 9.5 mg/dL (8.4-10.2); Carbon Dioxide 25 mmol/L (22-29); Chloride 106 mmol/L (96-108); Creatinine Clr Calc Pharmacy 33.9; Estimated Glomerular Filt Rate 46; Glucose Random 95 mg/dL (60-115); Lipase 25 U/L (8-78); Magnesium 1.9 mg/dL (1.6-2.6); Potassium 4.3 mmol/L (3.3-5.1); Sodium 139 mmol/L (135-145); Total Protein 6.7 g/dL (6.5-8.0)
[2022-12-16 16:13] LABS: B Type Natriuretic Peptide 479 pg/mL (<100)
[2022-12-16 16:17] LABS: Troponin-I High Sensitivity 20.6 ng/L (<3.5-17.0)
[2022-12-16] MEDS: Famotidine/PF 20 MG/2 ML VIAL IVPUSH (16:27)
[2022-12-16] MEDS: Labetalol HCL 100 MG/20 ML VIAL IVPUSH (16:27)
[2022-12-16] MEDS: Morphine Sulfate 2 MG/ML CARTRIDGE IVPUSH (16:28)
--- NOTE | 2022-12-16 16:46 | PC.NURSE ---
patient a&ox3, lungs clear/diminished, noted BLE 2+ pitting edema-provider aware, iv inserted- pt difficult stick, labs previously drawn by tech, pt c/o 02/16 abd pain- denies pain upon palpation, + bs, ekg monitor tech applied, pt medicated for hypertension and abd pain, CT scan obtained, call car within reach, will continue to monitor.
--- NOTE | 2022-12-16 17:15 | PC.NURSE ---
patient continues to complain of abdominal pain, she states it is a 9/10 and a few moments later states its not as bad as it was before. hall monitor sinus adalberto 60s, pt continues to be hypertensive, pure wick intact, provider at bedside, will continue to monitor.
--- NOTE | 2022-12-16 19:21 | PC.NURSE ---
assumed care of pt at 1900 - pt resting comfortably, on monitoring coordinator. will CTM
--- NOTE | 2022-12-16 19:58 | PC.NURSE ---
pt found in room attempting to get out of bed, pt removed purewick and took iv line out of arm. pt placed back in bed comfortably, purewick in place. PCT in room drawing repeat troponin now. pt appears confused at baseline telling this RN please call my daughter to come pick me up this RN explaining to pt that we need to do some more tests first. pt verbalizes understanding and is calm in bed. will CTM.
[2022-12-16 22:02] LABS: Appearance Urine Clear; Color Urine Yellow; Glucose Urine UA Negative (Negative); Leukocyte Esterase Urine Trace (Negative); Nitrite Urine Negative (Negative); UMIC TRIGGER UACC YES; Urine Blood Negative (Negative); Urine Ketones Negative (Negative); Urine Protein Negative (Neg-Trace)
[2022-12-16 22:07] LABS: Bacteria Urine 1+ (None Seen); Hyaline Casts Urine 0-2 /LPF (0-2); RBC Urine 0-2 /HPF (0-2); Squamous Epithelial Cell Urine 0-2 /HPF (0-2); WBC Urine 0-5 /HPF (0-5)
[2022-12-16] MEDS: cloNIDine HCL 0.2 MG TABLET PO (22:16)
--- NOTE | 2022-12-16 23:03 | PC.NURSE ---
per provider patient's troponin likely r/t high blood pressures. will get systolic BP below 180 and discharge pt per doctor's orders as no acute findings found today in ER. pt has no current complaints, no chest pain, no sob. resting comfortably. A&Ox3. will CTM.
--- NOTE | 2022-12-17 00:02 | PC.NURSE ---
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 left message. will try again shortly
--- NOTE | 2022-12-17 06:27 | PC.NURSE ---
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
[2022-12-17 06:34] VITALS: BP 177/66; PULSE 60; RESP 18; TEMP 36.4; O2SAT 98
== END 2022-12-17 07:16 | disposition home or self-care (01) ==
PROVIDERS: Physician Assistant; Emergency Provider Emergency Medicine; PCP Internal Medicine
DX: K52.9 Noninfective gastroenteritis and colitis, unspecified (principal); I10 Essential (primary) hypertension; R10.2 Pelvic and perineal pain; R10.13 Epigastric pain; R06.02 Shortness of breath; R94.31 Abnormal electrocardiogram [ECG] [EKG]; Z79.899 Other long term (current) drug therapy
CPT/HCPCS: 36415; 71045; 74176; 80048; 80076; 81001; 81003; 83690; 83735; 83880; 84484; 85025; 85610; 93005; 96374; 96375; 99285; J2270

== ENCOUNTER 2023-04-07 20:06 | Emergency (ER) | payer MEDICARE, SELFPAY ==
[2023-04-07 20:20] VITALS: BP 168/72; PULSE 52; RESP 18; TEMP 36.4; O2SAT 97; BMI 31.9
[2023-04-07 20:58] LABS: Appearance Urine Cloudy; Color Urine Dark Yellow; Glucose Urine UA Negative (Negative); Leukocyte Esterase Urine Small (1+) (Negative); Nitrite Urine Negative (Negative); PH 5.5 (5.0-9.0); UMIC TRIGGER UACC YES; Urine Blood Negative (Negative); Urine Ketones Trace mg/dL (Negative); Urine Protein Trace mg/dL (Neg-Trace)
[2023-04-07 21:02] LABS: Basophils Absolute Auto 0.1 X10*3/uL (0.0-0.2); Basophils Percent Auto 0.5 % (0-2); Eosinophils Absolute Auto 0.3 X10*3/uL (0.0-0.4); Eosinophils Percent Auto 2.2 % (0-4); Hematocrit 41.9 % (37.0-47.0); Hemoglobin 13.8 g/dl (12.0-16.0); Imm Gran Abs Auto 0.04 X10*3/uL (0.00-0.03); Imm Gran Pct Auto 0.3 % (0.0-0.4); Lymphocytes Percent Auto 59.1 % (20-40); MANUAL DIFF FLAG SCAN; Mean Corpuscular HGB Conc 32.9 g/dl (31.0-35.0); Mean Corpuscular Hemoglobin 30.9 pg (27.0-33.0); Mean Corpuscular Volume 93.7 fL (80.0-98.0); Mean Platelet Volume 10.4 fL (9.4-12.3); Monocytes Absolute Auto 0.8 X10*3/uL (0.1-1.2); Neutrophils Absolute Auto 4.2 x10*3/uL (2.0-8.3); Neutrophils Percent Auto 31.9 % (45-73); Platelet Count 175 X10*3/uL (160-400); Red Blood Count 4.47 X10*6/uL (4.20-5.50); Red Cell Distribution Width 13.3 % (11.0-16.0); SCAN SMEAR FLAG 1; White Blood Count 13.2 X10*3/uL (4.8-10.8)
[2023-04-07 21:15] LABS: Lymphocytes Absolute Auto 7.8 X10*3/uL (1.2-4.9)
[2023-04-07 21:24] LABS: Anion Gap 17 (12-20); Blood Urea Nitrogen 22 mg/dL (9-16); Calcium 10.2 mg/dL (8.4-10.2); Carbon Dioxide 22 mmol/L (22-29); Chloride 106 mmol/L (96-108); Estimated Glomerular Filt Rate 38; Glucose Random 93 mg/dL (60-115); Potassium 3.9 mmol/L (3.3-5.1); Sodium 141 mmol/L (135-145)
[2023-04-07 21:38] LABS: Bacteria Urine None Seen (None Seen); RBC Urine 0-2 /HPF (0-2); Squamous Epithelial Cell Urine >20 /HPF (0-2); UACC Culture Trigger YES
[2023-04-07 22:11] LABS: SLIDE REVIEW VERIFIED
== END 2023-04-07 23:29 | disposition left against medical advice (07) ==
PROVIDERS: Emergency Provider Emergency Medicine; PCP Internal Medicine
DX: R44.3 Hallucinations, unspecified (principal); Z79.899 Other long term (current) drug therapy
CPT/HCPCS: 36415; 80048; 81001; 85025; 87086; 99282; 99283

== ENCOUNTER 2023-04-09 15:20 | Outpatient (AMB) | payer MEDICARE, SELFPAY ==
[2023-04-09 15:24] VITALS: BP 136/80; PULSE 44; O2SAT 93; BMI 26.0
--- NOTE | 2023-04-09 15:24 | MHC.OFFVIS ---
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 Accompanied by: Self / Same As Patient Allergies clindamycin Allergy (Intermediate, Verified 04/09/23 15:24) Dizziness codeine [CODEINE] Allergy (Intermediate, Verified 04/09/23 15:24) sleepiness penicillin V Allergy (Intermediate, Verified 04/09/23 15:24) Rash Sulfa (Sulfonamide Antibiotics) Allergy (Intermediate, Verified 04/09/23 15:24) Rash sulfamethoxazole [From Bactrim] Allergy (Verified 04/09/23 15:24) Unknown trimethoprim [From Bactrim] Allergy (Verified 04/09/23 15:24) Unknown colchicine Adverse Reaction (Intermediate, Verified 04/09/23 15:24) diarrhea Medication List - Last Reconciled 04/09/23 by Antwan Hills MD ascorbic acid (vitamin C) 500 mg PO DAILY aspirin (Adult Aspirin Regimen) 81 mg PO DAILY atenolol 25 mg PO DAILY 90 days blood pressure monitor (Blood Pressure Kit) As directed cholecalciferol (vitamin D3) 50 mcg PO DAILY famotidine (Pepcid) 40 mg PO BEDTIME meclizine 25 mg PO TID PRN nitrofurantoin macrocrystal 100 mg PO BID 5 days omeprazole 20 mg PO DAILY 90 days HPI HPI Comments History of Present Illness Details Gail is here for consultation regarding abnormal EKG and elevation in cardiac BNP. She is accompanied by her daughter. According to daughter, patient has some dementia/confusion at baseline. Today, she is more confused than usual apparently due to some UTI as well. Otherwise, patient has not noticed any clear-cut anginal-type chest pains or shortness of breath or any cardiovascular symptoms. No known coronary disease, myocardial infarction or cardiomyopathy. She might have uncontrolled hypertension. Has had strokes in the past but nothing recently. 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 Mother No problems noted. Social History Housing: Apartment Alcohol intake: never Patient Tobacco Use Status: Never used Tobacco e-Cigarette/Vaping Use: Never Used Second Hand Smoke Exposure: No service: No Current occupational status: retired Cognitive needs: Yes Hearing needs: Yes Vision needs: No Review of Systems Const Denies chills, Denies daytime sleepiness, Denies fatigue, Denies fever(s), Denies frequent falls, Denies night sweats, Denies snoring, Denies weakness, Denies weight gain and Denies weight loss Eyes Denies loss of vision ENT Denies dizziness and Denies hearing loss Card Denies chest pain, Denies chest pain with activity, Denies syncope, Denies rapid heart rate, Denies edema, Denies claudication, Denies leg edema, Denies lightheadedness, Denies palpitations, Denies dyspnea, Denies dyspnea on exertion and Denies orthopnea Resp Denies cough, Denies excessive phlegm production, Denies dyspnea, Denies dyspnea on exertion, Denies snoring and Denies wheezing GI Denies abdominal pain, Denies hematochezia, Denies change in bowel habits, Denies change in stool character, Denies heartburn, Denies nausea and Denies vomiting Denies hematuria, Denies urinary frequency and Denies dysuria Musc Denies arthralgias, Denies muscle weakness, Denies numbness and Denies tingling Skin/Breast Denies nail changes and Denies rash Neuro Denies Abnormal speech present, Denies dizziness, Denies syncope, Denies frequent falls, Denies loss of vision, Denies memory loss, Denies numbness, Denies tingling and Denies weakness Psych Denies depression and Denies memory loss Endo Denies fatigue and Denies palpitations Aller/Immun Denies wheezing Physical Exam Vital Signs: Last Vital Signs Pulse 44 L 04/09/23 15:24 BP 136/80 04/09/23 15:24 Pulse Ox 93 04/09/23 15:24 BMI result Body Mass Index 26.0 Const General: comfortable and no acute distress Orientation/consciousness: No patient oriented x3 HEENT Other: Unremarkable Head: Yes normal to inspection Neck Neck: Yes normal visual inspection Chest Chest palpation & inspection: normal inspection of the chest Resp Auscultation: clear to auscultation bilaterally Cardio Palpation: normal PMI Heart sounds: S1 normal heart sound present, S2 normal heart sound present, no gallops, no murmurs and no rubs GI Palpation (GI): Soft to palpation Back/Spine/Pelvis Other: unremarkable Skin General skin exam: no rashes or lesions noted Neuro General: No patient oriented x3 Speech: No Abnormal speech present Extrem General: Yes normal to inspection Psych Mental Status: mental status grossly abnormal Assessment & Plan Assessment & Plan (1) Abnormal EKG: Code(s): R94.31 - Abnormal electrocardiogram [ECG] [EKG] (2) Elevated brain natriuretic peptide (BNP) level: Code(s): R79.89 - Other specified abnormal findings of blood chemistry (3) Essential hypertension: Code(s): I10 - Essential (primary) hypertension Plan In the recent EKG, underlying rhythm is sinus rhythm at 67/Min. [place] prolongation. Cannot exclude old septal infarct but could just be from body habitus. Nonspecific ST-T changes. In other EKG from last year, LVH/repolarization pattern seen. Overall, EKG changes could be related to poorly controlled hypertension. A prior cardiac BNP was 479. There is on the higher side. Again could indicate diastolic dysfunction related to uncontrolled hypertension. Clinically, she does not have any overt symptoms or signs of congestive heart failure. Hence hold off on diuretics. We will plan on getting an echocardiogram for cardiac function assessment. At her age, frailty, confusion, hold off any ischemia workup. With regard to blood pressure management, she may stay on atenolol for now. She does have slight [place] prolongation and may rather be better off with a different medication like amlodipine. They can start doing home blood pressure monitoring. To be followed and changes made. Plan discussed with daughter. Orders: Orders CA echo transthoracic complete Today R79.89 - Other specified abnormal findings of blood chemistry Coding Level of Care Code New Pt Level 4 (15026) Diagnoses Abnormal EKG R94.31 Elevated brain natriuretic peptide (BNP) level R79.89 Essential hypertension I10
== END 2023-04-09 15:48 | disposition home or self-care (01) ==
LOC: HO.HCS 15:20
PROVIDERS: PCP Internal Medicine; Visit Provider Internal Medicine
DX: R94.31 Abnormal electrocardiogram [ECG] [EKG] (principal); R79.89 Other specified abnormal findings of blood chemistry; I10 Essential (primary) hypertension
CPT/HCPCS: 99214

== ENCOUNTER → 2023-04-09 15:20 | Outpatient (BNVA) | payer MEDICARE, SELFPAY | PROVIDERS: PCP Internal Medicine; Visit Provider Internal Medicine ==

== ENCOUNTER 2023-05-01 18:02 | Emergency (ER) | payer MEDICARE, SELFPAY ==
--- NOTE | ~2023-05-01 | CT_ITS ---
EXAMINATION: CT HEAD WITHOUT CONTRAST CLINICAL INFORMATION: Increased confusion. COMPARISON: CT head 08/10/2021. MR head dated 09/20/2022. TECHNIQUE: Contiguous axial imaging was performed from the skull base to vertex without intravenous administration of contrast. Coronal and sagittal reformatted images were obtained. This CT examination was performed using dose optimization techniques as appropriate, variously including the following: *Automated exposure control *Adjustment of mA and/or kV according to patient size (this includes techniques or standardized protocols for targeted exams where dose is matched to indication/reason for exam; i.e. extremities or head) *Use of iterative reconstruction technique DLP: 587 mGy-cm FINDINGS: Right frontal, left parietal right occipital encephalomalacia is again seen without significant change. Moderate periventricular microvascular changes are seen. Left parietal and right occipital encephalomalacia is seen without significant change. There is mild widening of the cortical sulci and associated ventriculomegaly. The lateral ventricles are symmetrical. The third and fourth ventricles are in their normal midline position. The basilar and prepontine cisterns are unremarkable. There is no acute intra or extracerebral abnormality. There is no mass effect or midline shift. Sections through the bony calvarium are unremarkable. The orbits are intact. The paranasal sinuses are clear. The mastoid air cells are clear. CT/CT head/brain wo IV con IMPRESSION: No acute intracranial pathology. Chronic changes without significant change.
--- NOTE | ~2023-05-01 | XR_ITS ---
EXAMINATION: XR ANKLE, LEFT CLINICAL INFORMATION: Pain. COMPARISON: None available. TECHNIQUE: AP, lateral, and mortise views of the left ankle. FINDINGS: The bone mineralization is within normal limits. There is no fracture. Joint spaces are maintained. There is arteriovascular calcification. The soft tissues are otherwise unremarkable. XR/XR ankle LT min 3V IMPRESSION: No acute osseous abnormality.
--- NOTE | 2023-05-01 18:12 | ED_ITS ---
HPI - General Adult General Chief complaint: Altered Mental Status Stated complaint: Conf, UTI did not take meds for,L ankle pain Time Seen by Provider: 05/01/23 18:11 Source: patient, family and EMS Mode of arrival: EMS Limitations: altered mental status History of Present Illness HPI narrative: Patient is an 88-year-old female presents emergency department via EMS today for evaluation. When asked patient states she is here today because she is experiencing pain to the left ankle. By her account she awoke with this pain today, without any known precipitating injury, she denies any numbness or tingling to the extremity. She states that her daughter came to visit her today and contacted EMS due to her ankle pain. However per EMS report there was mention that patient was diagnosed with a urinary tract infection 3 weeks ago and that she did not take her antibiotics, she has had decreased oral intake, a nd increasing confusion per the daughter's report to them. When asked she denies having any fevers, chills, chest pain, shortness of breath, nausea, vomiting, abdominal pain, dysuria, hematuria. She does endorse having urinary frequency and urinary incontinence. Related Data Previous Rx's Medication Instructions Recorded meclizine 25 mg tablet 25 mg PO TID PRN dizziness #90 tabs 12/26/22 atenolol 25 mg tablet 25 mg PO DAILY 90 days #90 tabs 01/01/23 famotidine 40 mg tablet (Pepcid) 40 mg PO BEDTIME #30 tabs 01/01/23 omeprazole 20 mg capsule,delayed 20 mg PO DAILY 90 days #90 caps 01/01/23 release blood pressure monitor (Blood #1 ea 04/09/23 Pressure Kit) Allergies Allergy/AdvReac Type Severity Reaction Status Date / Time clindamycin Allergy Intermediate Dizziness Verified 04/09/23 15:24 codeine [CODEINE] Allergy Intermediate sleepiness Verified 04/09/23 15:24 penicillin V Allergy Intermediate Rash Verified 04/09/23 15:24 Sulfa (Sulfonamide Allergy Intermediate Rash Verified 04/09/23 15:24 Antibiotics) sulfamethoxazole Allergy Unknown Verified 04/09/23 15:24 [From Bactrim] trimethoprim [From Bactrim] Allergy Unknown Verified 04/09/23 15:24 colchicine AdvReac Intermediate diarrhea Verified 04/09/23 15:24 Review of Systems Review of Systems: Constitutional: No weight loss, fever, chills, weakness or fatigue. Skin: No rash or itching. Cardiovascular: No chest pain, chest pressure or chest discomfort. No palpitations or pedal edema. Respiratory: No shortness of breath, cough or sputum production. Gastrointestinal: No anorexia, nausea, vomiting or diarrhea. No abdominal pain or blood in stool. Genitourinary: No burning micturition. Positive urinary frequency and incontinence. Musculoskeletal: Positive left ankle pain Psychiatric: No depression or anxiety. Yes all other systems are reviewed and are negative [facility] Past Medical History Attestation statement: The following information was validated with the patient. Source: old records reviewed Medical History Abdominal pain Encounter for annual wellness exam in Medicare patient Essential hypertension GERD (gastroesophageal reflux disease) Gout Hearing loss HTN (hypertension) Low back pain with sciatica Osteoarthritis Presbyacusis TIA (transient ischemic attack) Vertigo Surgical History History of appendectomy History of esophagogastroduodenoscopy (EGD) History of tonsillectomy Hx of cataract extraction S/P implantation of urinary electronic stimulator device Family History Family History Father No problems noted. Mother No problems noted. Social History Social History Housing: Apartment Alcohol intake: never Patient Tobacco Use Status: Never used Tobacco Smoked in Last 30 Days: No e-Cigarette/Vaping Use: Never Used Second Hand Smoke Exposure: No Use of substances other than those prescribed or required for medical reasons: No Advance Directives: No Advance Directives Information Provided: No service: No Current occupational status: retired Cognitive needs: Yes Hearing needs: Yes Vision needs: No Physical Exam ED Vital Signs: Vital Signs - 24 hr 05/10/23 12:50 05/10/23 16:22 05/11/23 06:00 Temperature 97.8 F 97.8 F 97.4 F Pulse Rate 63 57 57 Respiratory Rate 18 18 20 Blood Pressure 189/67 H 151/69 H 161/85 H Pulse Oximetry 93 99 97 Oxygen Delivery Method Room Air Room Air Room Air BMI result Body Mass Index 26.2 Appearance: Alert.?Oriented to person and place. Disoriented to time and events. No acute distress.?Normal affect. Eyes: Pupils equal, round and reactive to light.? ENT: Pharynx normal.?? Neck: Normal inspection.? Neck supple.?? CVS: Heart sounds normal. Normal heart rate and rhythm.? Pulses normal.?? Respiratory: No respiratory distress.? Lung sounds clear to auscultation bilaterally?? Abdomen: Soft and non-tender. Normoactive bowel sounds. Skin: Skin warm and dry.? Normal skin color.? Extremities: No lower extremity edema.? No calf ttp? Neuro: Moves all extremities spontaneously. Sensation intact bilaterally. CN II- XII intact. No focal neuro deficits. Ambulates with antalgic gait. Course Reevaluation(s) Reevaluation #1: Daughter; Maye at bedside. She reports that patient came to emergency department a few weeks ago, had serum labs and urinalysis obtained from the waiting room but ultimately left without being seen. She was contacted to be advised of urinary tract infection. Reportedly patient was given the antibiotics, but daughter is not certain whether she took them as prescribed due to her forgetfulness. She reports that she typically goes to patient's home every night after work, but has noticed that she has become increasingly more confused. Today she presented to the patient's home and she was reporting left ankle pain of unknown etiology. Reportedly patient was unable to get out of bed despite being assisted due to her pain, which prompted her to call EMS. Daughter reports that she does seem ?more off? with increasing confusion over the past few weeks. She states she is currently in the process of applying for [employer], with consideration for potential long-term care placement, and is involving [facility] next week. Time: 18:58 Reevaluation #2: XR left Ankle is without any acute abnormality, no evidence of fracture dislocation, no point tenderness upon examination. CBC reveals leukocytosis at 12.7 without left shift. Lactic acid of 2.5, not due to sepsis, to lactic acidosis the beta-talia usage. Urinalysis concerning for urinary tract infection, especially in the setting of questionable antibiotic compliance, reviewed prior urine cultures which have grown E coli/Proteus Mirabalis will cover with cefuroxime at this time and follow culture. Time: 22:03 Reevaluation #3: CT of the head reveals no acute intracranial pathology. At this time patient was placed in position observation so the physical therapy/case management evaluation can ensue. Time: 22:29 Additional Reevaluation(s): Patient pending PT and case management will remain in observation. Vital signs stable. Home med reconciliation done. 05/04/23 @ 7:09 am - physician observation continued. BP persistently elevated systolic 160-200s systolic, HR 50s. on atenolol 25 mg once per day. will also add norvasc 5 mg per day and monitor response. she is on ceftin for UTI, urine sample contaminated w/ squamous cells and culture with urogenital contamination. will attempt to repeat clean catch UA today. PT recommending short term rehab with ?transition to [facility] in the future. case management following for placement, [facility] application needs to be completed. will continue to monitor. 0717 05/05/2023 Patient to remain in observation, patient's vital signs stable and have been around patient's baseline. Patient's blood pressure elevated however on 25 mg of atenolol daily. Previous provider added 5 mg of Norvasc per day . Sample initially contaminated, repeat UA without infection, no visualized bacteria, case management following this patient, pending placement disposition. 1640 - 05/06/2023 - physician observation continued. Blood pressure improved to 143/49. No overnight events. 05/07/23 @ 9:30am - physician observation continued. patient's repeat urine culture from 05/04 is negative. she is off of antibiotics. she remains confused and is having hallucinations. difficulty sleeping at night. will get psych consult. case management on board, awaiting [facility] application. will continue to monitor. 05/09/23 @ 6:49am - physician observation continued. psych consult is still pending. no current hallucinations but she talked to herself all night. oriented x2. VS remain stable. [facility] application still pending. will continue to monitor. 05/10/23 Physician observation continued, uneventful night. Psych consult pending. [facility] application pending 05/11/23-no complaints from nursing overnight. Vital signs reviewed and stable. Patient's [facility] application is pending which will need to be completed prior to placement. Will continue physician observation pending disposition Medications Administered Generic Name Dose Route Start Last Admin Trade Name Freq PRN Reason Stop Dose Admin Acetaminophen 650 mg 05/02/23 09:01 05/10/23 20:02 Acetaminophen 325 Mg Tablet PO 650 mg Q6H PRN Administration mild pain Amlodipine Besylate 5 mg 05/04/23 09:00 05/10/23 07:43 Amlodipine Besylate 5 Mg Tablet PO 5 mg DAILY RODRI Administration Protocol Atenolol 25 mg 05/02/23 09:15 05/10/23 07:43 Atenolol 25 Mg Tablet PO 25 mg DAILY RODRI Administration Protocol Famotidine 40 mg 05/02/23 21:00 05/10/23 20:03 Famotidine 20 Mg Tablet PO 40 mg BEDTIME RODRI Administration Meclizine HCl 25 mg 05/02/23 09:02 05/02/23 21:37 Meclizine Hcl 25 Mg Tablet PO 25 mg TID PRN Administration dizziness Omeprazole 20 mg 05/03/23 06:30 05/11/23 06:01 Omeprazole 20 Mg Capsule. PO 20 mg DAILY@0630 RODRI Administration Discontinued Medications Generic Name Dose Route Start Last Admin Trade Name Freq PRN Reason Stop Dose Admin Amlodipine Besylate 5 mg 05/04/23 20:08 05/04/23 20:12 Amlodipine Besylate 5 Mg Tablet PO 05/04/23 20:09 5 mg ONCE ONE Administration Protocol Cefuroxime Axetil 500 mg 05/01/23 22:15 05/06/23 07:14 Cefuroxime Axetil 500 Mg Tablet PO 05/06/23 09:01 500 mg BID RODIR Administration Quetiapine Fumarate 25 mg 05/04/23 01:15 05/04/23 01:20 Quetiapine Fumarate 25 Mg Tablet PO 05/04/23 01:16 25 mg ONCE ONE Administration Medical Decision Making Medical Decision Making MDM Narrative: Patient is an 88-year-old female with past medical history of hypertension, GERD, gout, TIA, vertigo presenting to emergency department for evaluation of left ankle pain and increasing confusion per daughter's report to EMS. At the time my examination she is overall well-appearing, has no focal neurological deficits upon examination. Left ankle is without any acute abnormality, extremity is neurovascularly intact distally, no erythema or warmth to suggest a septic arthritis, no wounds or lesions.. Will obtain CBC to evaluate for leukocytosis/ anemia, CMP to evaluate for abnormal electrolytes /abnormal renal function/ abnormal hepatic function, XR of the left ankle and Urinalysis. Differential Diagnosis Differential Diagnoses: The differential diagnosis associated with the presentation includes (Urinary tract infection, pyelonephritis, metabolic encephalopathy, ankle sprain, lower extremity fracture) Admission/Observation Consideration of admission/observation: Escalation of care including adm ission/observation considered (I considered admission for confusion, see course narrative for further detail) Lab Data MDM Lab Attestation statement: I reviewed the patient's lab results. (See course narrative for further detail) 05/01/23 20:49 05/01/23 20:49 Labs: Lab Results 05/01/23 05/01/23 05/01/23 Range/Units 20:49 20:49 20:49 WBC 12.7 H (4.8-10.8) X10*3/uL RBC 4.40 (4.20-5.50) X10*6/uL Hgb 13.7 (12.0-16.0) g/dl Hct 40.3 (37.0-47.0) % MCV 91.6 (80.0-98.0) fL MCH 31.1 (27.0-33.0) pg MCHC 34.0 (31.0-35.0) g/dl RDW 13.9 (11.0-16.0) % Plt Count 185 (160-400) X10*3/uL MPV 11.1 (9.4-12.3) fL Immature Gran % (Auto) 0.2 (0.0-0.4) % Neut % (Auto) 35.7 L (45-73) % Lymph % (Auto) 55.1 H (20-40) % Jewell % (Auto) 7.5 (2-11) % Eos % (Auto) 1.2 (0-4) % Baso % (Auto) 0.3 (0-2) % Lymph # (Auto) 7.0 H (1.2-4.9) X10*3/uL [place] # (Auto) 1.0 (0.1-1.2) X10*3/uL Eos # (Auto) 0.2 (0.0-0.4) X10*3/uL Baso # (Auto) 0.0 (0.0-0.2) X10*3/uL Abs Immat Gran (auto) 0.02 (0.00-0.03) X10*3/uL Absolute Neuts (auto) 4.6 (2.0-8.3) x10*3/uL Absolute Nucleated RBC 0.000 (0.0-0.012) X10*3/uL Nucleated RBC % (auto) 0.0 (0.0-0.2) /100WBC Sodium 142 (135-145) mmol/L Potassium 3.6 (3.3-5.1) mmol/L Chloride 109 H (96-108) mmol/L Carbon Dioxide 26 (22-29) mmol/L Anion Gap 11 L (12-20) BUN 19 H (9-16) mg/dL Creatinine 0.87 (0.5-1.4) mg/dL Estim Creat Clear Calc 39.5 Estimated GFR > 60 Random Glucose 93 (60-115) mg/dL Lactic Acid 2.5 H* (0.5-2.0) mmol/L Lactic Acid F/U @ 2Hr (0.5-2.0) mmol/L Calcium 10.0 (8.4-10.2) mg/dL Total Bilirubin 0.8 (0.0-1.0) mg/dL AST 19 (5-31) U/L ALT 13 (0-31) U/L Alkaline Phosphatase 67 (39-117) U/L Total Protein 6.5 (6.5-8.0) g/dL Albumin 3.6 (3.5-5.0) g/dL Urine Color Urine Appearance Urine pH (5.0-9.0) Ur Specific [place] (1.005-1.025) Urine Protein (Neg-Trace) mg/dL Urine Glucose (UA) (Negative) mg/dL Urine Ketones (Negative) mg/dL Urine Blood (Negative) Urine Nitrite (Negative) Ur Leukocyte Esterase (Negative) Urine RBC (0-2) /HPF Urine WBC (0-5) /HPF Ur Squamous Epith Cells (0-2) /HPF Urine Bacteria (None Seen) Hyaline Casts (0-2) /LPF 05/01/23 05/01/23 05/04/23 Range/Units 21:18 23:40 19:53 WBC (4.8-10.8) X10*3/uL RBC (4.20-5.50) X10*6/uL Hgb (12.0-16.0) g/dl Hct (37.0-47.0) % MCV (80.0-98.0) fL MCH (27.0-33.0) pg MCHC (31.0-35.0) g/dl RDW (11.0-16.0) % Plt Count (160-400) X10*3/uL MPV (9.4-12.3) fL Immature Gran % (Auto) (0.0-0.4) % Neut % (Auto) (45-73) % Lymph % (Auto) (20-40) % Jewell % (Auto) (2-11) % Eos % (Auto) (0-4) % Baso % (Auto) (0-2) % Lymph # (Auto) (1.2-4.9) X10*3/uL [place] # (Auto) (0.1-1.2) X10*3/uL Eos # (Auto) (0.0-0.4) X10*3/uL Baso # (Auto) (0.0-0.2) X10*3/uL Abs Immat Gran (auto) (0.00-0.03) X10*3/uL Absolute Neuts (auto) (2.0-8.3) x10*3/uL Absolute Nucleated RBC (0.0-0.012) X10*3/uL Nucleated RBC % (auto) (0.0-0.2) /100WBC Sodium (135-145) mmol/L Potassium (3.3-5.1) mmol/L Chloride (96-108) mmol/L Carbon Dioxide (22-29) mmol/L Anion Gap (12-20) BUN (9-16) mg/dL Creatinine (0.5-1.4) mg/dL Estim Creat Clear Calc Estimated GFR Random Glucose (60-115) mg/dL Lactic Acid (0.5-2.0) mmol/L Lactic Acid F/U @ 2Hr 2.0 (0.5-2.0) mmol/L Calcium (8.4-10.2) mg/dL Total Bilirubin (0.0-1.0) mg/dL AST (5-31) U/L ALT (0-31) U/L Alkaline Phosphatase (39-117) U/L Total Protein (6.5-8.0) g/dL Albumin (3.5-5.0) g/dL Urine Color Dark Yellow Yellow Urine Appearance Cloudy Clear Urine pH 5.5 6.0 (5.0-9.0) Ur Specific [place] 1.025 1.015 (1.005-1.025) Urine Protein 30 (1+) H Negative (Neg-Trace) mg/dL Urine Glucose (UA) Negative Negative (Negative) mg/dL Urine Ketones Trace Negative (Negative) mg/dL Urine Blood Negative Negative (Negative) Urine Nitrite Negative Negative (Negative) Ur Leukocyte Esterase Moderate (2+) H Moderate (2+) H (Negative) Urine RBC 3-5 H 0-2 (0-2) /HPF Urine WBC 21-50 H 11-20 H (0-5) /HPF Ur Squamous Epith Cells >20 3-5 (0-2) /HPF Urine Bacteria 3+ None Seen (None Seen) Hyaline Casts 0-2 0-2 (0-2) /LPF Independent Interpretation I performed an independent interpretation of an: Plain X-Ray (I personally interpreted XR imaging of the left ankle and agree with radiologist impression, no acute fracture or dislocation.) Radiology Impression Discussion of test interpretation with radiology: I have reviewed the radiologist's reading. Radiologist Impression: XR/XR ankle LT min 3V IMPRESSION: No acute osseous abnormality. CT/CT head/brain wo IV con IMPRESSION: No acute intracranial pathology. Chronic changes without significant change. Discharge Plan Discharge Clinical Impression: Ankle pain, Urinary tract infection Patient Disposition: Still a Patient Prescriptions: No Action meclizine 25 mg tablet 25 mg PO TID PRN (Reason: dizziness) Qty: 90 6RF (DME) blood pressure monitor [Blood Pressure Kit] Kit See Rx Instructions .Route Qty: 1 0RF Rx Instructions: As directed atenolol 25 mg tablet 25 mg PO DAILY 90 Days Qty: 90 3RF famotidine [Pepcid] 40 mg tablet 40 mg PO BEDTIME Qty: 30 6RF omeprazole 20 mg capsule,delayed release(DR/EC) 20 mg PO DAILY 90 Days Qty: 90 1RF
[2023-05-01 19:01] VITALS: BP 173/64; PULSE 68; RESP 18; TEMP 37.1; O2SAT 97
[2023-05-01 19:05] VITALS: BP 142/77; BP 173/64; PULSE 67; PULSE 78; RESP 18; TEMP 37.1; O2SAT 97; BMI 26.2
[2023-05-01 20:57] LABS: MANUAL DIFF FLAG NO
[2023-05-01 21:01] LABS: Basophils Percent Auto 0.3 % (0-2); Eosinophils Absolute Auto 0.2 X10*3/uL (0.0-0.4); Eosinophils Percent Auto 1.2 % (0-4); Imm Gran Pct Auto 0.2 % (0.0-0.4); Mean Corpuscular Hemoglobin 31.1 pg (27.0-33.0); SCAN SMEAR FLAG 1
[2023-05-01 21:06] LABS: Hematocrit 40.3 % (37.0-47.0); Hemoglobin 13.7 g/dl (12.0-16.0); Imm Gran Abs Auto 0.02 X10*3/uL (0.00-0.03); Lymphocytes Percent Auto 55.1 % (20-40); Mean Corpuscular Volume 91.6 fL (80.0-98.0); Mean Platelet Volume 11.1 fL (9.4-12.3); Monocytes Percent Auto 7.5 % (2-11); Neutrophils Absolute Auto 4.6 x10*3/uL (2.0-8.3); Neutrophils Percent Auto 35.7 % (45-73); Platelet Count 185 X10*3/uL (160-400); Red Cell Distribution Width 13.9 % (11.0-16.0); White Blood Count 12.7 X10*3/uL (4.8-10.8)
[2023-05-01 21:12] LABS: Alanine Aminotransferase 13 U/L (0-31); Albumin Level 3.6 g/dL (3.5-5.0); Alkaline Phosphatase 67 U/L (39-117); Anion Gap 11 (12-20); Aspartate Amino Transferase 19 U/L (5-31); Bilirubin Total 0.8 mg/dL (0.0-1.0); Blood Urea Nitrogen 19 mg/dL (9-16); Carbon Dioxide 26 mmol/L (22-29); Chloride 109 mmol/L (96-108); Creatinine Clr Calc Pharmacy 39.5; Estimated Glomerular Filt Rate > 60; Glucose Random 93 mg/dL (60-115); Lactic Acid 2.5 mmol/L (0.5-2.0); Potassium 3.6 mmol/L (3.3-5.1); Sodium 142 mmol/L (135-145); Total Protein 6.5 g/dL (6.5-8.0)
[2023-05-01 21:25] LABS: Appearance Urine Cloudy; Color Urine Dark Yellow; Glucose Urine UA Negative (Negative); Leukocyte Esterase Urine Moderate (2+) (Negative); Nitrite Urine Negative (Negative); PH 5.5 (5.0-9.0); Specific Gravity - Urine 1.025 (1.005-1.025); UMIC TRIGGER UACC YES; Urine Blood Negative (Negative); Urine Ketones Trace mg/dL (Negative); Urine Protein 30 (1+) mg/dL (Neg-Trace)
[2023-05-01 21:27] LABS: Bacteria Urine 3+ (None Seen); Hyaline Casts Urine 0-2 /LPF (0-2); Squamous Epithelial Cell Urine >20 /HPF (0-2); UACC Culture Trigger YES; WBC Urine 21-50 /HPF (0-5)
--- NOTE | 2023-05-01 21:28 | PHA.MEDREC ---
Pharmacy Consult ? Medication Reconciliation Pharmacy has completed the medication reconciliation. Patient is confused. Was able to list most medications. daughter reports she does not think patient has been taking them but should be. Brenna Acosta, PharmD
[2023-05-01 22:55] LABS: Reflex Lactate? Lactic Acid Added
[2023-05-01 23:10] VITALS: BP 171/61; PULSE 63; RESP 18; TEMP 36.9; O2SAT 100
--- NOTE | 2023-05-02 00:31 | MHC.CM.ED ---
Addendum entered by Shraddha Burroughs 05/02/23 16:39: Referral made to Financial Services. Family aware. Daughter tells CM she should have all of the financials by tomorrow, Saturday at latest and will contact [facility] financial services for any needed assistance to to help with filing application. Original Note: Met with patient at request of Valeria HERANNDEZ. Family at bedside. Pt with sl confusion d/t UTI. Lives alone. Ankle pain. Unable to ambulate. New onset acute glaucoma. ? legally blind. Family concerned for her safety. Cannot care for her. Both work. Working on MH application with [facility]. Not complete. Requesting LTC. Pt is agreeable. PT pending, however, family does not have funds for STR R&B and they cannot care for her in the home or bring her to their home for home PT. Family aware that the MH application process can take weeks and that her mother will not be admitted, so if they cannot safely care for her pending LTC placement, then patient would remain in our overflow unit until she can be placed in LTC. Family and patient understand, but insist they cannot care for her. [facility] Financial services pamhlet given. Daughter requests referral to Financial services. Contact card given. No referrals yet made for LTC. Will complete. Will upload HCP and POA. Unsure who PCP is. Will speak with family again tomorrow, as they have left for the day. Pt is very pleasant and cooperative. No behaviors. CM will follow for discharge planning.
[2023-05-02] MEDS: Acetaminophen 325 MG TABLET 650 MG PO (09:27)
[2023-05-02] MEDS: atenoloL 25 MG TABLET PO (09:28)
[2023-05-02 09:29] VITALS: BP 180/68; PULSE 65; RESP 16; TEMP 36.6; O2SAT 99
--- NOTE | 2023-05-02 09:33 | PC.NURSE ---
patient resting in bed, shows no signs of distress. utilized prn tylenol for patients ankle pain. patient has call car within reach
--- NOTE | 2023-05-02 11:32 | PC.NURSE ---
patient resting in bed, respirations equal and unlabored. shows no signs of distress
--- NOTE | 2023-05-02 12:19 | MHC.CM.ED ---
Patient remains in ER overflow. Physical therapy eval completed. Short term rehab is recommended. Patient has not been inpatient in any facility in the past 30 days. Medicare will not pay for a SNF. Referral sent to the 3 acute rehab facilities locally. No bed offers made at this time. Family has already been referred to [facility] financial counselors for MH LTC application. Will wait to hear from financial counselors before proceeding with referrals. Continue to monitor for d/c needs.
[2023-05-02 14:00] VITALS: BP 172/64; PULSE 52; RESP 18; TEMP 36.7; O2SAT 99
--- NOTE | 2023-05-02 15:13 | PC.NURSE ---
patient brought from ED to overflow bed 7, pt alert to person only, oob 2 person assist-very unsteady, vss, fall precautions intact, pt currently denying pain/discomfort, call car flip hussein, will continue to moitor.
--- NOTE | 2023-05-02 16:05 | PC.NURSE ---
pt family members at bedside requesting to speak with case management, this nurse notified bird of pt family request.
--- NOTE | 2023-05-02 18:18 | PC.NURSE ---
pt currently sleeping
[2023-05-02 19:37] VITALS: BP 160/62; PULSE 59; RESP 20; TEMP 36.4; O2SAT 99
--- NOTE | 2023-05-02 20:28 | PC.NURSE ---
pt transported from overflow unit to ED bed 10. report received from Pam ALLEN
[2023-05-02] MEDS: Famotidine 20 MG TABLET 40 MG PO (21:37)
[2023-05-02] MEDS: Meclizine HCl 25 MG TABLET PO (21:37)
--- NOTE | 2023-05-02 21:38 | PC.NURSE ---
patient medicated per mar with bedtime medications. meclizine given as ordered as pt reporting dizziness even when laying down. pt swallowed pills whole with no issues. call car within reach. warm blanket given
[2023-05-02 22:34] VITALS: BP 134/51; PULSE 55; RESP 16; TEMP 36.7; O2SAT 96
[2023-05-02 23:03] VITALS: BP 125/47; PULSE 55; RESP 18; TEMP 36.5; O2SAT 100
[2023-05-03 01:38] VITALS: BP 169/58; PULSE 57; RESP 18; TEMP 36.5; O2SAT 100
[2023-05-03] MEDS: Acetaminophen 325 MG TABLET 650 MG PO (03:20)
[2023-05-03 03:58] VITALS: BP 186/56; PULSE 50; RESP 18; TEMP 36.4; O2SAT 99
[2023-05-03 05:48] VITALS: BP 168/58; PULSE 50; RESP 18; TEMP 36.5; O2SAT 96
[2023-05-03] MEDS: Omeprazole 20 MG CAPSULE.DR PO (07:30)
--- NOTE | 2023-05-03 07:38 | PC.NURSE ---
assumed care of pt at 0700. Pt oriented only to person, am prilosec given per MAR, no difficulty with swallowing noted. Ot states that they want to leave, pt redirectable. will cont to daniela
[2023-05-03] MEDS: atenoloL 25 MG TABLET PO (08:10)
--- NOTE | 2023-05-03 12:03 | PC.NURSE ---
pt confused, up to date on meds per nov, redirected to bed, will ctm
--- NOTE | 2023-05-03 17:05 | PC.NURSE ---
pt used bed roman. Pt is unable to stand and pivot to commode without feeling dizzy and experiencing vertigo. Pt redirected to bed. will CTM
[2023-05-03 17:06] VITALS: BP 205/69; PULSE 51; RESP 16; TEMP 36.6
--- NOTE | 2023-05-03 17:58 | MHC.CM.ED ---
Waiting for family to complete all financials for MH application. Once obtained, patient will meet with [facility] [place] services. Referrals will be placed for LTC when MH application completed.
--- NOTE | 2023-05-03 18:09 | MHC.EDTECH ---
Patient given a dinner tray
--- NOTE | 2023-05-03 18:25 | PC.NURSE ---
pt eating dinner, denies dizziness at this time. Reports that they feel fine and that the vertigo came when they tried to stand
--- NOTE | 2023-05-03 19:17 | PC.NURSE ---
Pt alert but confused according to family at bedside. Plan of care ongoing.
--- NOTE | 2023-05-03 19:20 | MHC.CM.ED ---
CM spoke with patient' daughter/HCP Maye, who tells me she has almost all of the MH jaylyn documentation, and just needs a letter from the [employer] insurance. She has been working with [facility] and expects to [place] [facility] [place] Saturday or Saturday for an appointment to finish and submit application. Maye aware that [facility] will need a copy of the MH application for facilities that offer patient a bed. No referrals yet placed.
[2023-05-03 19:56] VITALS: BP 181/62; RESP 16; TEMP 36.5
[2023-05-03] MEDS: Famotidine 20 MG TABLET 40 MG PO (21:10)
--- NOTE | 2023-05-03 21:17 | PC.NURSE ---
Pt alert and responds to verbal command. Pt with sitter Pt medicated per nov. Plan of care ongoing.
--- NOTE | 2023-05-03 22:34 | MHC.EDTECH ---
Did a complete bed change
[2023-05-03 23:35] VITALS: BP 184/57; PULSE 51; RESP 18; O2SAT 95
--- NOTE | 2023-05-03 23:57 | PC.NURSE ---
Pt attempting to get out of bed. Pt redirected back into bed. Plan of care ongoing.
[2023-05-04] MEDS: QUEtiapine Fumarate 25 MG TABLET PO (01:20)
--- NOTE | 2023-05-04 01:23 | PC.NURSE ---
Pt placed on camera monitor. Pt medicated per nov. Plan of care ongoing.
[2023-05-04 05:18] VITALS: BP 182/62; PULSE 50; RESP 18; TEMP 36.7; O2SAT 100
--- NOTE | 2023-05-04 05:25 | MHC.EDTECH ---
pt cleaned, linens changed. pt resting comfortably at this time.
[2023-05-04] MEDS: atenoloL 25 MG TABLET PO (09:55)
[2023-05-04] MEDS: Omeprazole 20 MG CAPSULE.DR PO (09:57)
[2023-05-04] MEDS: amLODIPine Besylate 5 MG TABLET PO ×2 (09:57→20:12)
[2023-05-04 09:58] VITALS: BP 195/70; PULSE 50; O2SAT 98
--- NOTE | 2023-05-04 10:08 | PC.NURSE ---
respirations even and unlabored. pt resting comfortably. linens changed and pt hooked up to sliceXck at this time. pt reports no pain. pt medicated per nov.
[2023-05-04 14:42] VITALS: BP 199/68; PULSE 46; TEMP 36.4
--- NOTE | 2023-05-04 19:36 | PC.NURSE ---
Pt a&o to self, pt is pleasantly confused, pt reports no pain, Pt reports urinary incontinence, pt was cleaned up and repositioned. Pt was given pudding and is tolerating it well. VSS. Bed alarm on, camera in place. Pt resting quietly, with no apparent distress.
[2023-05-04 19:57] VITALS: BP 181/64; PULSE 49; RESP 14; TEMP 36.4; O2SAT 97
--- NOTE | 2023-05-04 20:15 | PC.NURSE ---
Dr. Lopez Notified of high blood pressure, medication given per NOV.
[2023-05-04 20:20] LABS: Appearance Urine Clear; Color Urine Yellow; Glucose Urine UA Negative (Negative); Leukocyte Esterase Urine Moderate (2+) (Negative); Nitrite Urine Negative (Negative); Specific Gravity - Urine 1.015 (1.005-1.025); UMIC TRIGGER UACC YES; Urine Blood Negative (Negative); Urine Ketones Negative (Negative); Urine Protein Negative (Neg-Trace)
[2023-05-04] MEDS: Famotidine 20 MG TABLET 40 MG PO (20:49)
[2023-05-04 21:13] LABS: Bacteria Urine None Seen (None Seen); Hyaline Casts Urine 0-2 /LPF (0-2); RBC Urine 0-2 /HPF (0-2); UACC Culture Trigger YES
--- NOTE | 2023-05-04 21:36 | MHC.EDTECH ---
Brought patient warm blanket.
[2023-05-04 23:48] VITALS: BP 177/64; PULSE 54; RESP 18; TEMP 36.8; O2SAT 100
[2023-05-05] VITALS (7 sets, daily range): BP systolic 135–170; BP diastolic 47–97; PULSE 53–59; RESP 16–18; TEMP 36.6–36.8; O2SAT 98
--- NOTE | 2023-05-05 04:28 | MHC.EDTECH ---
THIS PCT ASSUMED CARE OF PT AT 0300 ,PT CLEAN AND DRY ,PT SLEEPING AT THIS TIME .
--- NOTE | 2023-05-05 06:39 | MHC.EDTECH ---
0600 rounding done ,vitals sign taken ,RN Emilia is aware of pt high bp ,pt was incontinent of urine ,care given ,pure wick empty 250 ml ,warm blanket given .
--- NOTE | 2023-05-05 06:57 | PC.NURSE ---
Alert and responsive, denies pain or discomfort, fluids provided per patients request. Repositioned in bed
[2023-05-05] MEDS: Omeprazole 20 MG CAPSULE.DR PO (07:00)
[2023-05-05] MEDS: amLODIPine Besylate 5 MG TABLET PO (08:07)
[2023-05-05] MEDS: atenoloL 25 MG TABLET PO (08:13)
--- NOTE | 2023-05-05 10:56 | PC.NURSE ---
Patient resting quietly in bed at this time, denies pain or discomfort.
--- NOTE | 2023-05-05 14:23 | PC.NURSE ---
Patient declined lunch stating she was not hungry. Daughter in to visit. Repositioned on right side. Purwick remains in place
--- NOTE | 2023-05-05 15:42 | MHC.EDTECH ---
THIS PCT ASSUMED CARE OF PT AT 1500 ,PT AWAKE WATCHING TELEVISION ,VITALS SIGN TAKEN ,PT IS DRY AND WAS REPOSITION AND BOOSTED UP IN BED .
--- NOTE | 2023-05-05 19:00 | MHC.EDTECH ---
patient was a 1 : 1 feed for dinner ate 50 % of meal drank 240 ml juice .
--- NOTE | 2023-05-05 19:40 | PC.NURSE ---
This RN assumed care at 1930. Patient calm in bed at this moment.
[2023-05-05] MEDS: Famotidine 20 MG TABLET 40 MG PO (20:59)
--- NOTE | 2023-05-05 21:52 | MHC.EDTECH ---
2200 rounding done ,vitals sign taken ,pt was incontinent of lg moist bowel movement ,bed bath given ,bedding change ,patient drank a few sips of water refused hs snack .
[2023-05-06 02:02] VITALS: BP 154/56; PULSE 57; RESP 18; TEMP 36.8; O2SAT 98
[2023-05-06] MEDS: atenoloL 25 MG TABLET PO (07:14)
[2023-05-06] MEDS: amLODIPine Besylate 5 MG TABLET PO (07:14)
[2023-05-06] MEDS: Omeprazole 20 MG CAPSULE.DR PO (07:14)
--- NOTE | 2023-05-06 07:22 | PC.NURSE ---
pt sitting up in bed, ate breakfast 75%. took am meds. denied having any pain or questions. awaiting cm placement.
[2023-05-06 07:57] VITALS: BP 176/64; PULSE 58; RESP 16; TEMP 36.7; O2SAT 97
[2023-05-06 16:05] VITALS: BP 143/49; PULSE 59; RESP 16; TEMP 37; O2SAT 98
--- NOTE | 2023-05-06 19:04 | MHC.EDTECH ---
THIS TECH TOOK OVER OVER AT 1900
[2023-05-06 19:28] VITALS: BP 152/54; PULSE 57; RESP 17; TEMP 36.7; O2SAT 99
[2023-05-06] MEDS: Famotidine 20 MG TABLET 40 MG PO (21:03)
[2023-05-07] VITALS (8 sets, daily range): BP systolic 129–183; BP diastolic 50–70; PULSE 53–105; RESP 12–18; TEMP 36.5–37.1; O2SAT 95–98
[2023-05-07] MEDS: Omeprazole 20 MG CAPSULE.DR PO (07:14)
--- NOTE | 2023-05-07 07:16 | PC.NURSE ---
pt alert and oriented to self. vss. respirations even and unlabored. pt repositioned in bed. eating breakfast at this time. all needs met; bed alarm on camera in room.
--- NOTE | 2023-05-07 08:17 | MHC.EDTECH ---
AM care done,bed change ,new purewick on, output 400ml . RN aware
[2023-05-07] MEDS: amLODIPine Besylate 5 MG TABLET PO (09:09)
[2023-05-07] MEDS: atenoloL 25 MG TABLET PO (09:09)
--- NOTE | 2023-05-07 14:35 | MHC.CM.ED ---
Patient remains in ER. Family is working with [facility] and [facility] to complete [employer] application. Family aware CM will need a copy of application. Continue to monitor for d/c needs.
--- NOTE | 2023-05-07 15:51 | PC.NURSE ---
Pt arrived to overflow department via bed. Alert, pleasantly confused and cooperative. Denies pain. Purewick engaged, call car in reach
--- NOTE | 2023-05-07 17:40 | PC.NURSE ---
Pt spoke with daughter on the phone and is currently resting quietly in bed with eyes closed
[2023-05-07] MEDS: Famotidine 20 MG TABLET 40 MG PO (21:15)
[2023-05-08] MEDS: Acetaminophen 325 MG TABLET 650 MG PO (05:36)
[2023-05-08] MEDS: Omeprazole 20 MG CAPSULE.DR PO (05:37)
--- NOTE | 2023-05-08 05:37 | PC.NURSE ---
pt c/o headache 01/16, medicated with 650mg of tylenol po
[2023-05-08 05:38] VITALS: BP 149/48; PULSE 81; RESP 14; TEMP 37; O2SAT 97
[2023-05-08] MEDS: amLODIPine Besylate 5 MG TABLET PO (09:02)
[2023-05-08] MEDS: atenoloL 25 MG TABLET PO (09:02)
--- NOTE | 2023-05-08 09:11 | PC.NURSE ---
pt repositioned - pillow placed under right side. pt verbalizing that pain decreased after tylenol administration. medications administered per provider order. pt resting comfortably eating breakfast. eye in the wayne placed bedside with pt. bed alarm turned on. call car placed within reach.
--- NOTE | 2023-05-08 11:37 | PC.NURSE ---
pt currently sleeping with no signs of apparent distress. video camera/monitor present bedside. bed alarm turned on. call car placed within reach.
--- NOTE | 2023-05-08 13:11 | PC.NURSE ---
pt currently asleep with the lights dimmed. video/monitor bedside with pt. bed alarm turned on. call car placed within reach.
[2023-05-08 13:59] VITALS: BP 137/83; PULSE 60; RESP 15; TEMP 36.4; O2SAT 98
--- NOTE | 2023-05-08 18:00 | MHC.EDTECH ---
PATIENT ATE 75 % OF DINNER ,DRANK 240 ML DORINA JOSEF ,AFTER DINNER PT WAS GIVEN A BED BATH ,PATIENT VOID LARGE AMOUNT OF URINE AND WAS INC .
--- NOTE | 2023-05-08 21:14 | PC.NURSE ---
Assumed care at 1900. Pt alert, oriented to self and place. Able to reposition independently in bed. No c/o pain. Refused medication, charted appropriately. Purewick in place, brief on for pt comfort. Warm blanket given, call car within reach.
[2023-05-08 21:35] VITALS: BP 149/81; PULSE 64; RESP 17; TEMP 36.2; O2SAT 98
[2023-05-09] MEDS: Acetaminophen 325 MG TABLET 650 MG PO (05:59)
[2023-05-09] MEDS: Omeprazole 20 MG CAPSULE.DR PO (05:59)
[2023-05-09 06:00] VITALS: BP 167/49; PULSE 80; RESP 18; TEMP 36.7; O2SAT 92
[2023-05-09] MEDS: amLODIPine Besylate 5 MG TABLET PO (08:39)
[2023-05-09] MEDS: atenoloL 25 MG TABLET PO (08:40)
--- NOTE | 2023-05-09 12:14 | MHC.CM.ED ---
Pt continues to board in ED over pending [facility] and [facility] placement. Review of EMR does not find clinical need for admission: pt is being treated for a UTI w/PO medications. Call placed to pt's dtr Maye : message left inquiring on status of MMIS application. Will await callback. It is expected pt will remain boarding until placement and a payor can be obtained. All 3 acute rehab centers have declined pt based on lack of medical complexity. ED CM to follow.
[2023-05-09 14:00] VITALS: BP 149/63; PULSE 57; RESP 18; TEMP 36.6; O2SAT 97
[2023-05-09 20:38] VITALS: BP 132/59; PULSE 61; RESP 18; TEMP 36.8; O2SAT 97
[2023-05-09] MEDS: Famotidine 20 MG TABLET 40 MG PO (21:10)
[2023-05-10 06:00] VITALS: BP 188/56; PULSE 56; RESP 18; TEMP 36.9; O2SAT 96
[2023-05-10] MEDS: Omeprazole 20 MG CAPSULE.DR PO (06:32)
[2023-05-10 07:33] VITALS: BP 201/73; PULSE 55; RESP 17; TEMP 37.1; O2SAT 96
[2023-05-10] MEDS: atenoloL 25 MG TABLET PO (07:43)
[2023-05-10] MEDS: amLODIPine Besylate 5 MG TABLET PO (07:43)
[2023-05-10 12:50] VITALS: BP 189/67; PULSE 63; RESP 18; TEMP 36.6; O2SAT 93
[2023-05-10 16:22] VITALS: BP 151/69; PULSE 57; RESP 18; TEMP 36.6; O2SAT 99
--- NOTE | 2023-05-10 19:56 | MHC.CM.ED ---
CM spoke with HCP/daughter aMye regarding updates with MH application process. Maye tells CM that she is working with Rach at [facility] financial services to complete application and thinks she needs 1 or 2 more documents. States she expects it to be completed hopefully by Saturday. CM will make LTC referrals once application is complete. Maye is saddened that her mother's confusion has not improved much with antibiotic therapy. Feels confident that her mother needs LTC. CM following for discharge planning.
[2023-05-10] MEDS: Acetaminophen 325 MG TABLET 650 MG PO (20:02)
[2023-05-10] MEDS: Famotidine 20 MG TABLET 40 MG PO (20:03)
[2023-05-11 06:00] VITALS: BP 161/85; PULSE 57; RESP 20; TEMP 36.3; O2SAT 97
[2023-05-11] MEDS: Omeprazole 20 MG CAPSULE.DR PO (06:01)
[2023-05-11 08:10] VITALS: BP 161/66; PULSE 55; RESP 17; TEMP 36.6; O2SAT 98
[2023-05-11] MEDS: atenoloL 25 MG TABLET PO (09:30)
[2023-05-11] MEDS: amLODIPine Besylate 5 MG TABLET PO (09:31)
[2023-05-11] MEDS: Acetaminophen 325 MG TABLET 650 MG PO (09:33)
[2023-05-11 14:00] VITALS: BP 134/59; PULSE 55; RESP 16; TEMP 36.5; O2SAT 96
--- NOTE | 2023-05-11 18:13 | PC.NURSE ---
Patient alert and awake in the morning, was able to feed herself breakfast with setup and minimal help mostly due to her vision. Has not gotten up from the bad, using purewick with minimal output and one unmeasured incontinent episode. Patient refused lunch stating she was too tired to eat and wanted to sleep. More awake for dinner, finished most of her meal and became emotional, crying and when asked why she was crying patient explained that she was worried about her grandson who was sick.
--- NOTE | 2023-05-11 19:34 | PC.NURSE ---
I assumed care of the pt at 1900. Pt is asleep in bed at this time, dimitri is in place.
[2023-05-11] MEDS: Famotidine 20 MG TABLET 40 MG PO (20:17)
[2023-05-11 20:36] VITALS: BP 149/78; PULSE 58; RESP 17; TEMP 36.6; O2SAT 98
[2023-05-12 06:00] VITALS: BP 153/84; PULSE 58; RESP 14; TEMP 36.3; O2SAT 98
[2023-05-12] MEDS: Omeprazole 20 MG CAPSULE.DR PO (06:46)
[2023-05-12] MEDS: atenoloL 25 MG TABLET PO (09:10)
[2023-05-12] MEDS: amLODIPine Besylate 5 MG TABLET PO (09:11)
[2023-05-12] MEDS: Acetaminophen 325 MG TABLET 650 MG PO (09:33)
--- NOTE | 2023-05-12 13:54 | MHC.CM.ED ---
Pt continues to hold in the ED pending MH application submission by dtr. This should occur this week per review of notes. Pt is pleasant, confused but will engage in conversation. LTC referrals will be made once jaylyn has been submitted. ED CM to follow.
[2023-05-12 14:00] VITALS: BP 131/53; PULSE 61; RESP 16; TEMP 36.5; O2SAT 93
--- NOTE | 2023-05-12 18:08 | PC.NURSE ---
Patient was able to get out of bed and sit in the chair for about 4 hours today. Took short naps throughout the day, c/o of headache, tylenol helped. Patient's daughter visited and was given an update on patient's progress. Daughter feels mom is getting better, more altert.
[2023-05-12] MEDS: Famotidine 20 MG TABLET 40 MG PO (20:34)
[2023-05-12 20:54] VITALS: BP 145/71; PULSE 70; RESP 17; TEMP 36.4; O2SAT 95
[2023-05-13] MEDS: Omeprazole 20 MG CAPSULE.DR PO (05:41)
[2023-05-13 06:15] VITALS: BP 159/78; PULSE 68; RESP 16; TEMP 37.1; O2SAT 100
[2023-05-13] MEDS: atenoloL 25 MG TABLET PO (08:25)
[2023-05-13] MEDS: amLODIPine Besylate 5 MG TABLET PO (08:26)
--- NOTE | 2023-05-13 14:37 | MHC.EDTECH ---
AM care now due to pt sleeping and told me that she will let me know when she was ready. bed change .
[2023-05-13] MEDS: Famotidine 20 MG TABLET 40 MG PO (21:00)
[2023-05-13] MEDS: Acetaminophen 325 MG TABLET 650 MG PO (21:00)
[2023-05-13 22:58] VITALS: BP 130/55; PULSE 56; RESP 20; TEMP 36.4; O2SAT 96
[2023-05-14 05:13] VITALS: BP 143/56; PULSE 56; RESP 18; TEMP 36.4; O2SAT 97
[2023-05-14] MEDS: Acetaminophen 325 MG TABLET 650 MG PO ×2 (06:07→18:13)
[2023-05-14] MEDS: Omeprazole 20 MG CAPSULE.DR PO (06:08)
[2023-05-14] MEDS: amLODIPine Besylate 5 MG TABLET PO (10:11)
[2023-05-14] MEDS: atenoloL 25 MG TABLET PO (10:12)
--- NOTE | 2023-05-14 11:25 | PC.NURSE ---
Assumed care at 07:00. Patient very sleepy, refused breakfast, refused to arouse for medications, medications given after 10 am when patient more arousable, oriented to person only. Denies complaints. Telesitter in use. Refused to get OOB.
[2023-05-14 14:08] VITALS: BP 122/65; PULSE 53; RESP 16; TEMP 36.3; O2SAT 97
[2023-05-14] MEDS: Famotidine 20 MG TABLET 40 MG PO (20:50)
[2023-05-14 22:00] VITALS: BP 140/66; PULSE 57; RESP 16; TEMP 36.6; O2SAT 96
[2023-05-15] MEDS: Acetaminophen 325 MG TABLET 650 MG PO (03:49)
[2023-05-15 05:57] VITALS: BP 146/61; PULSE 55; RESP 18; TEMP 36.6; O2SAT 98
[2023-05-15] MEDS: Omeprazole 20 MG CAPSULE.DR PO (06:04)
[2023-05-15 09:13] VITALS: BP 166/59; PULSE 57; RESP 18; TEMP 36.6; O2SAT 98
[2023-05-15] MEDS: atenoloL 25 MG TABLET PO (09:14)
[2023-05-15] MEDS: amLODIPine Besylate 5 MG TABLET PO (09:14)
--- NOTE | 2023-05-15 09:49 | PC.NURSE ---
A & Ox3. Reports difficulty seeing d/t glaucoma. Respirations even and unlabored. Lungs - CTA in all [place]. No SOB noted. Skin is pink, warm, dry. No edema. Denied pain. Pt aware of plan of care.
--- NOTE | 2023-05-15 14:01 | MHC.CM.ED ---
Patient remains in ER overflow. Spoke with Rach of [facility] Financial Counselor. Patient's daughter should have the last of the [employer] application for Rach today. Rach will send that completed application to . Will resend referral when this is obtained. Continue to monitor for d/c needs.
[2023-05-15 14:41] VITALS: RESP 14
--- NOTE | 2023-05-15 17:01 | PC.NURSE ---
Ate 50% of dinner. Consumed 240cc of fluids.
[2023-05-15] MEDS: Famotidine 20 MG TABLET 40 MG PO (21:06)
[2023-05-15 21:12] VITALS: BP 131/56; PULSE 67; RESP 17; TEMP 36.7; O2SAT 98
[2023-05-16 06:39] VITALS: BP 166/56; PULSE 57; RESP 16; TEMP 36.1; O2SAT 99
[2023-05-16] MEDS: Omeprazole 20 MG CAPSULE.DR PO (06:47)
[2023-05-16] MEDS: atenoloL 25 MG TABLET PO (09:03)
[2023-05-16] MEDS: amLODIPine Besylate 5 MG TABLET PO (09:03)
[2023-05-16 16:39] VITALS: BP 143/56; PULSE 53; RESP 16; TEMP 36.2; O2SAT 97
--- NOTE | 2023-05-16 18:24 | MHC.EDTECH ---
PT DRY AND ATE 50 % OF DINNER ,PT FAMILY AT BEDSIDE .
--- NOTE | 2023-05-16 18:28 | PC.NURSE ---
family at bedside patient has been calm and cooperative and in good spirts waiting on placement
[2023-05-16 20:10] VITALS: BP 142/57; PULSE 57; RESP 20; TEMP 36.4; O2SAT 98
[2023-05-16] MEDS: Famotidine 20 MG TABLET 40 MG PO (21:32)
--- NOTE | 2023-05-17 05:53 | PC.NURSE ---
This RN assumed care at 1900. Patient self-dialoguing, stating I wish I was . Patient medication compliant and was safe on checks. RN gave report to Valeri ALLEN at 0000.
[2023-05-17 06:00] VITALS: BP 170/65; PULSE 90; RESP 18; TEMP 36.1
--- NOTE | 2023-05-17 06:27 | PC.NURSE ---
Care assumed at 00:00 05/17. Pt continues in ED overflow. Seen here for AMS. Pt remains alert, altered/confused, oriented to self. Attempts to redirect and reorient made though pt argues and refuses that she is in the hospital. Continues self-dialoguing making statements like I'm . I'm just existing . Pt frequently removing her clothing and blankets despite replacing. Pt refused AM meds, stated leave me alone. I'm just existing. I'm a ball on a tree . Breathing even and unlabored without distress on RA. Slept in naps overnight. Bed alarm on and camera in place for safety.
[2023-05-17] MEDS: amLODIPine Besylate 5 MG TABLET PO (08:17)
[2023-05-17] MEDS: atenoloL 25 MG TABLET PO (08:17)
[2023-05-17 09:06] VITALS: BP 161/61
[2023-05-17 13:42] VITALS: BP 150/56; PULSE 59; RESP 16; TEMP 36.7; O2SAT 91
[2023-05-17 14:39] VITALS: O2SAT 94
--- NOTE | 2023-05-17 16:17 | MHC.CM.ED ---
Patient remains in ER overflow. Per Rach of [facility] financial counseling, [employer]'s system has been down all day. Copy of MH jaylyn will be provided to CM on Saturday. LTC referral will be made at that time. Continue to monitor for d/c needs.
--- NOTE | 2023-05-17 18:17 | PC.NURSE ---
Patient awaiting placement pending insurance approval, stayed in bed, oob to bedside commode with one assist, unsteady on her feet. Patient refused dinner tray stating she was not hungry.
[2023-05-17 21:36] VITALS: BP 147/65; PULSE 57; RESP 18; TEMP 36.2; O2SAT 96
[2023-05-17] MEDS: Famotidine 20 MG TABLET 40 MG PO (21:36)
--- NOTE | 2023-05-18 00:57 | PC.NURSE ---
Patient continues in ED overflow admitted for confusion, UTI, R ankle pain. Patient A&O to person only, altered mentation, confusion noted . No c/o pain. Incontinent of urine. Patient repositioned and resting quietly at present.
[2023-05-18] MEDS: Acetaminophen 325 MG TABLET 650 MG PO (05:07)
[2023-05-18 05:29] VITALS: BP 143/56; PULSE 52; RESP 18; TEMP 36.4; O2SAT 96
[2023-05-18] MEDS: Omeprazole 20 MG CAPSULE.DR PO (06:11)
[2023-05-18] MEDS: amLODIPine Besylate 5 MG TABLET PO (08:16)
[2023-05-18] MEDS: atenoloL 25 MG TABLET PO (08:17)
[2023-05-18 08:19] VITALS: BP 151/82
[2023-05-18 09:45] VITALS: BP 145/64; PULSE 56; RESP 16; TEMP 36.7; O2SAT 98
--- NOTE | 2023-05-18 12:20 | PC.NURSE ---
watching tv and resting in bed. offered BR. no incontinence at this time. disoriented to place/situation intermittently at times. calm/cooperative. no distress noted.
--- NOTE | 2023-05-18 13:28 | PC.NURSE ---
resting, calm, cooperative. repositioned in bed. no distress
--- NOTE | 2023-05-18 14:57 | PC.NURSE ---
pt repositioned in bed for comfort
[2023-05-18 15:48] VITALS: BP 159/62; PULSE 57; RESP 16; TEMP 36.2; O2SAT 99
--- NOTE | 2023-05-18 17:07 | PC.NURSE ---
Resumed care at approximately 1500. Pt incontinent of urine, incontinence care provided, bed bath provided, pure wick placed. Pt pleasantly confused, redirectable. Pt sleeping and appears to be in no acute distress. Will continue with the plan of care.
[2023-05-18] MEDS: Famotidine 20 MG TABLET 40 MG PO (21:31)
--- NOTE | 2023-05-19 01:57 | PC.NURSE ---
Assumed care at approximately 1900. Patient remains confused intermittently, although redirectable. No c/o pain noted. Resting comfortably. Continue with plan of care.
[2023-05-19] MEDS: Omeprazole 20 MG CAPSULE.DR PO (05:49)
[2023-05-19 06:12] VITALS: BP 148/84; PULSE 98; RESP 16; TEMP 37.2; O2SAT 97
[2023-05-19] MEDS: amLODIPine Besylate 5 MG TABLET PO (09:54)
[2023-05-19 09:55] VITALS: BP 138/58; PULSE 58; O2SAT 98
--- NOTE | 2023-05-19 09:57 | PC.NURSE ---
HR 58 Atenolol held. will reassess HR. pt denies pain, vss. complete bed change and incontinent bed change done by tech. no apparent distress.
[2023-05-19 14:00] VITALS: BP 149/76; PULSE 57; RESP 16; TEMP 36.4; O2SAT 98
--- NOTE | 2023-05-19 15:08 | PC.NURSE ---
pt refused lunch, resting quietly in bed, no apparent distress. continue with plan of care.
--- NOTE | 2023-05-19 16:06 | MHC.EDTECH ---
Assist patient with personal Hygeine. Changed patients bedding and gown.
--- NOTE | 2023-05-19 16:07 | MHC.EDTECH ---
Changed patients Purewick.
[2023-05-19] MEDS: Famotidine 20 MG TABLET 40 MG PO (19:46)
[2023-05-19] MEDS: Meclizine HCl 25 MG TABLET PO (22:19)
[2023-05-19 22:23] VITALS: BP 157/71; PULSE 61; RESP 18; TEMP 36.9; O2SAT 18; O2SAT 98
[2023-05-20] MEDS: Omeprazole 20 MG CAPSULE.DR PO (05:38)
[2023-05-20 05:44] VITALS: BP 175/69; PULSE 80; RESP 18; TEMP 35.9; O2SAT 98
[2023-05-20 08:39] VITALS: BP 189/85; PULSE 56; RESP 17; TEMP 36.5; O2SAT 97
[2023-05-20] MEDS: amLODIPine Besylate 5 MG TABLET PO (09:05)
[2023-05-20] MEDS: atenoloL 25 MG TABLET PO (09:06)
[2023-05-20 10:08] VITALS: BP 149/78; RESP 18
--- NOTE | 2023-05-20 10:18 | PC.NURSE ---
resting, calm, no distress. watching tv in bed. no pain reported. reg breathing. no cp/dizziness/SOB/TAYLOR.
[2023-05-20 17:34] VITALS: BP 154/75; PULSE 57; RESP 20; TEMP 36.4; O2SAT 99
[2023-05-20] MEDS: Famotidine 20 MG TABLET 40 MG PO (20:39)
--- NOTE | 2023-05-20 22:48 | PC.NURSE ---
Patient alert and oriented to self, offers no complaints at this time. Medicated per mar, l/s dimisned, abd soft. Patient repositioned in bed, warm blanket provided, lights dimmed. Callbell within reach.
[2023-05-21 00:10] VITALS: RESP 16
[2023-05-21] MEDS: Omeprazole 20 MG CAPSULE.DR PO (05:33)
[2023-05-21 05:45] VITALS: BP 158/65; PULSE 61; RESP 18; TEMP 36.3; O2SAT 98
[2023-05-21 05:46] VITALS: RESP 18
[2023-05-21] MEDS: Acetaminophen 325 MG TABLET 650 MG PO (09:26)
[2023-05-21] MEDS: amLODIPine Besylate 5 MG TABLET PO (09:26)
[2023-05-21] MEDS: atenoloL 25 MG TABLET PO (09:27)
--- NOTE | 2023-05-21 10:33 | MHC.CM.ED ---
Addendum entered by Tiff Sam 05/21/23 15:07: Patient can leave for [facility] at 6pm. Esperanza BELL booked. [facility] with chart. Patient, daugher/HCP Hany Villavicencio RN and Nicole SIMON aware. Addendum entered by Tiff Sam 05/21/23 14:21: MDS completed. Sent to [facility] and [facility]. HCP invoked by Dr Caballero. [facility] PASRR Level 1 completed. Original Note: Patient remains in ER overflow. Received telephone call from patient's daughter, Maye. Maye works at [facility] at [employer]. She was told [facility] has a bed and requested referral be made via [facility]. Referral made. [facility] will need a copy of MH jaylyn. Anticipate to have a copy of application today. Will upload to [facility]. Continue to monitor for d/c needs.
[2023-05-21 13:52] VITALS: BP 129/59; RESP 20; TEMP 36.7; O2SAT 98
== END 2023-05-21 18:55 ==
PROVIDERS: Nurse Practitioner Family; Physician Assistant; Emergency Provider Student in an Organized Health Care Education/Training Program
DX: N39.0 Urinary tract infection, site not specified (principal); R41.82 Altered mental status, unspecified; R51.9 Headache, unspecified; R68.84 Jaw pain; M25.572 Pain in left ankle and joints of left foot; R00.0 Tachycardia, unspecified; R42 Dizziness and giddiness; R26.81 Unsteadiness on feet; Z91.148 Patient's other noncompliance with medication regimen for other reason; Z79.899 Other long term (current) drug therapy
CPT/HCPCS: 36415; 70450; 73610; 80053; 81001; 83605; 85025; 87040; 87086; 97162; 99285

== ENCOUNTER 2023-08-13 09:54 | Outpatient (REF) | payer MEDICARE, SELFPAY | END 2023-08-13 09:55 | disposition home or self-care (01) | LOC: HO.HOSX 09:54 | PROVIDERS: Visit Provider Physician Assistant | DX: M17.0 Bilateral primary osteoarthritis of knee (principal) | CPT/HCPCS: 20610; 99212; J1040 ==

== ENCOUNTER 2023-08-13 14:39 | Outpatient (AMB) | payer MEDICARE, SELFPAY ==
--- NOTE | 2023-08-13 14:51 | A.OFFVIS_ITS ---
Intake Intake Visit Reasons: OV - B/L Knee pain, last inj 05/07/22 Intake Note: Gail is a 88 year old female who presents today for a evaluation of her bilateral knee pain, last injection 05/07/22. Patient reports her last injection gave her relief and would like to try gel injections. She states that her right knee is worse. Allergies clindamycin Allergy (Intermediate, Verified 08/13/23 15:00) Dizziness codeine [CODEINE] Allergy (Intermediate, Verified 08/13/23 15:00) sleepiness penicillin V Allergy (Intermediate, Verified 08/13/23 15:00) Rash Sulfa (Sulfonamide Antibiotics) Allergy (Intermediate, Verified 08/13/23 15:00) Rash sulfamethoxazole [From Bactrim] Allergy (Verified 08/13/23 15:00) Unknown trimethoprim [From Bactrim] Allergy (Verified 08/13/23 15:00) Unknown colchicine Adverse Reaction (Intermediate, Verified 08/13/23 15:00) diarrhea HPI OV - B/L Knee pain, last inj 05/07/22 HPI Details 88-year-old female who [facility] for an evaluation of bilateral knee pain. The patient had cortisone injections in the bilateral knees 05/07/2023, which she states gave her relief. She would like to repeat Gel injections. She reports her right knee is worse then the left knee. The patient is wheelchair bound with 2 assistance. She is currently residing in a rehab facility. She is currently working to get her insurance switched to [employer]. [facility] Medical History Abdominal pain Encounter for annual wellness exam in Medicare patient Essential hypertension GERD (gastroesophageal reflux disease) Gout Hearing loss HTN (hypertension) Low back pain with sciatica Osteoarthritis Presbyacusis TIA (transient ischemic attack) Vertigo Surgical History History of appendectomy History of esophagogastroduodenoscopy (EGD) History of tonsillectomy Hx of cataract extraction S/P implantation of urinary electronic stimulator device Family History Father No problems noted. Mother No problems noted. Social History Housing: Apartment Alcohol intake: never Patient Tobacco Use Status: Never used Tobacco e-Cigarette/Vaping Use: Never Used Second Hand Smoke Exposure: No service: No Current occupational status: retired Cognitive needs: Yes Hearing needs: Yes Vision needs: No Review of Systems Const All systems reviewed & are unremarkable except as noted in HPI and below Physical Exam Const General: cooperative, healthy appearing and no acute distress Resp Effort & Inspection: normal respiratory effort and able to speak in complete sentences Cardio Rate: regular rate Peripheral pulses: Peripheral pulses 2+ throughout GI Palpation (GI): Soft to palpation Skin Lesions: no lesions Rashes: no rashes Extrem Other: Bilateral knees: Normal to inspection. No ecchymosis, erythema, or joint effusion. No tenderness to palpation to the medial or lateral joint lines. Full knee extension and flexion. Crepitus with ROM. NVI. Office Procedures Joint Injection/Drain Joint Injection/Drain Primary Site: right knee Secondary Site: left knee Prep: site was prepped using aseptic technique, ethochloride spray was applied a nd injection warnings given Injected: 80 mg of, DepoMedrol, with 8 mL of (2% plain lido ) and in the joint Approach Used: anterolateral Procedure: The patient tolerated the procedure well, but had some pain with the injection and there was some relief with the local anesthesia Coding 29346 - Large joint Procedure code (CPT) selection complete Assessment & Plan Assessment & Plan (1) Osteoarthritis of left knee: Code(s): M17.12 - Unilateral primary osteoarthritis, left knee Qualifiers: Osteoarthritis type: unspecified Qualified Code(s): M17.12 - Unilateral primary osteoarthritis, left knee (2) Osteoarthritis of right knee: Code(s): M17.11 - Unilateral primary osteoarthritis, right knee Qualifiers: Osteoarthritis type: unspecified Qualified Code(s): M17.11 - Unilateral primary osteoarthritis, right knee Plan Ms. Chavez is an 88-year-old female who presents in the office today for an evaluation of bilateral knee pain. The patient had cortisone injections in the bilateral knees 05/07/2023, which she states gave her relief. She would like to repeat Gel injections. She reports her right knee is worse then the left knee. The patient is wheelchair bound with 2 assistance. She is currently residing in a rehab facility. She is currently working to get her insurance switched to [employer]. The patient was offered a cortisone injection in the bilateral knees with 80 mg of DepoMedrol. The patient was explained the risk, benefits, and alternatives to receiving this injection. After receiving consent for the injection, the patient had the procedure done while in office today. The patient tolerated the procedure well with no complications. Once the patient has her insurance situated she will reach out to the office for us to petition the insurance for Gel injections. Follow up be PRN, or sooner if needed. X-rays were attempted while in the office today, however the patient refused to stand due to pain. Orders: Orders XR knee standing BI Today M25.569 - Pain in unspecified knee XR knee RT 2V Today M25.569 - Pain in unspecified knee XR knee LT 2V Today M25.569 - Pain in unspecified knee Patient Instructions: Scribed for Britney Rangel PA-C by Nicole Stanton certified medical coder, on 08/13/2023 at 3:03 pm, EST. Coding Level of Care Code Est Pt Level 3 (48698) Diagnoses Osteoarthritis of left knee, unspecified osteoarthritis type M17.12 Osteoarthritis type: unspecified Osteoarthritis of right knee, unspecified osteoarthritis type M17.11 Osteoarthritis type: unspecified CPT Codes Coding - 20243 Large joint: 55069 - Large joint ([id number])
== END 2023-08-13 15:38 | disposition home or self-care (01) ==
PROVIDERS: Visit Provider Physician Assistant
DX: M17.0 Bilateral primary osteoarthritis of knee (principal)
CPT/HCPCS: 20610; 99213